=== PATIENT | female | born 1950 | race Caucasian/White ===

== ENCOUNTER 2019-11-13 13:40 | Inpatient (IN) | payer MEDICARE, MEDICAID ==
[~2019-11-13] VITALS: Ht 167.6 cm; Wt 83.0 kg
[2019-11-13] VITALS (34 sets, daily range): BP systolic 63–142; BP diastolic 34–90; BMI 30.2
[2019-11-13 14:07] LABS: HEMATOCRIT 47.7 % (36.0-48.0); HEMOGLOBIN 14.5 g/dL (12-16); MCH 30.2 pg (26.0-34.0); MCHC 30.4 g/dL (31.0-37.0); MCV 99.4 fL (80.0-100.0); MEAN PLATELET VOLUME 10.3 fL (7.4-10.4); PLATELET COUNT 390 10x3/uL (130-400); RDW 14.2 % (11.5-14.5); WBC 17.8 10x3/uL (4.8-10.8)
[2019-11-13 14:11] LABS: CALC OSMOLALITY 281 mosm/kg (275-300); CALCIUM 9.5 mg/dL (8.5-10.1); CARBON DIOXIDE 33.4 mmol/L (21.0-32.0); CHLORIDE - SERUM 95 mmol/L (98-107); CREATININE - SERUM 1.3 mg/dL (0.6-1.3); GLUCOSE 200 mg/dL (74-106); POTASSIUM - SERUM 5.4 mmol/L (3.5-5.1); SODIUM 134 mmol/L (136-145); UREA NITROGEN 34 mg/dL (7-18); eGFR NON AFRICAN AMERICAN 43 mL/min (90-120)
[2019-11-13 14:19] LABS: APTT 32.1 SECONDS (22.8-39.4); INR 1.09 (0.85-1.17); PROTIME 14.1 SECONDS (11.6-15.0)
[2019-11-13 14:20] LABS: D-DIMER-QUANTITATIVE 2.36 ug/mLFEU (0.20-0.54)
[2019-11-13 14:25] LABS: LYMPHOCYTES 12 % (15-50); MONOCYTES 14 % (2-11); NEUTROPHILS 58 % (40-80); PLATELET ESTIMATE NORMAL
[2019-11-13 14:28] LABS: ALBUMIN 2.9 g/dL (3.4-5.0); ALKALINE PHOSPHATASE 116 U/L (46-116); ALT (SGPT) 27 U/L (10-68); BILIRUBIN - TOTAL 0.43 mg/dL (0.2-1.3); CKMB 7.5 U/L (0.0-3.6); CREATINE KINASE 181 UL (21-215); PROTEIN - SERUM 7.9 g/dL (6.4-8.2); TROPONIN-I < 0.017 ng/mL (0.000-0.060)
--- NOTE | 2019-11-13 15:15 | NUR ---
1435 B/P 63/34, DR KENYON AWARE, DIPROVAN HELD UNTIL NOREPINEPHRINE HELPS B/P PER DR KENYON, [facility] B/P 117/72 DIPROVAN AND NOREPINEPHRINE INFUSING VIA PUMP WITHOUT DIFFICULTY, MAP STAYING ABOVE 60. 1530 RT AND MASTIC MAN HERE FOR TRANSPORT TO CT AND THEN ONTO ROOM 2305 , PT ON PORTABLE VENT, PORTABLE MONITOR AND IV PUMP SEE DEPARTURE INFO.
--- NOTE | 2019-11-13 15:30 | NUR ---
STOP TIME FOR [facility] 1530.
--- NOTE | 2019-11-13 16:00 | NUR ---
PT ARRIVED TO UNIT ON STRETCHER. HOOKED UP TO ICU MONITOR. ADMISSION ASSESSMENT COMPLETED. WILL CONTINUE TO MONITOR
[2019-11-13 16:56] LABS: APPEARANCE CLEAR (CLEAR); BILIRUBIN NEGATIVE (NEGATIVE); COLOR YELLOW (YELLOW); GLUCOSE NEGATIVE (NEGATIVE); KETONE NEGATIVE (NEGATIVE); NITRITE NEGATIVE (NEGATIVE); PROTEIN TRACE mg/dL (NEGATIVE); SPECIFIC GRAVITY 1.025 (1.005-1.020); UROBILINOGEN NORMAL (NORMAL)
[2019-11-13 16:57] LABS: BACTERIA FEW /hpf (NEGATIVE); EPITHELIAL CELLS OCC /hpf (0-5); RED CELLS - URINE 0-5 /hpf (0-5); WHITE CELLS - URINE 0-5 /hpf (NEGATIVE)
--- NOTE | 2019-11-13 17:58 | NUR ---
DR DAWN AND DR ALVARADO BOTH CONSULTED ON THIS PT.
--- NOTE | 2019-11-13 19:00 | NUR ---
SHIFT ASSESSMENT COMPLETED. PT CARE ASSUMED. MONITORS ON AND WORKING, SEE FLOW SHEET FOR FURTHER DETIALS. WILL CONTINUE TO OBSERVE. VENT SETTING NOTED.
--- NOTE | 2019-11-13 21:00 | NUR ---
PT TURNED AND REPOSITIONED FOR COMFORT, MONITORS ON AND WORKING VITALS STABLE, FAMILY AT BEDSIDE, UPDATE PROVIDED, DR DAWN AT BEDSIDE, WILL CONTINUE TO OBSERVE.
--- NOTE | 2019-11-13 23:00 | NUR ---
PT TURNED AND REPOSITIONED FOR COMFORT, MONITORS ON AND WORKING, VITALS STABLE, SEE FLOW SHEET FOR FURTHER DETAILS, WILL CONTINUE TO OBSERVE.
[2019-11-14] VITALS (28 sets, daily range): BP systolic 84–139; BP diastolic 46–82; Ht 167.6 cm; Wt 83.0 kg
--- NOTE | 2019-11-14 01:00 | NUR ---
PT TURNED AND REPOSITIONED FOR COMFORT. MONTITORS ON AND WORKING, VITALS STABLE, WILL CONTINUE TO OBSERVE.
--- NOTE | 2019-11-14 03:00 | NUR ---
PT TURNED AND REPOSITIONED FOR COMFORT. MONITORS ON AND WORKING, VITALS STABLE. SEE FLOW SHEET FOR FURTHER DETAILS. WILL CONTINUE TO OBSERVE.
--- NOTE | 2019-11-14 05:00 | NUR ---
PT TURNED AND REPOSITIONED FOR COMFORT. MONITORS ON AND WORKING, VITALS STABLE, WILL CONTINUE TO OBSERVE.
[2019-11-14 05:33] LABS: ANION GAP 12.6 mmol/L (8-16); BILIRUBIN - TOTAL 0.27 mg/dL (0.2-1.3); CALCIUM 8.3 mg/dL (8.5-10.1); CARBON DIOXIDE 28.1 mmol/L (21.0-32.0); CREATININE - SERUM 1.1 mg/dL (0.6-1.3); POTASSIUM - SERUM 4.7 mmol/L (3.5-5.1)
--- NOTE | 2019-11-14 07:00 | NUR ---
PT REPORT RECEIVED FROM APPLICATIONS SUPPORT LEAD NURSE. NO ACUTE SIGNS OF DISTRESS NOTED. SHIFT ASSESSMENT COMPLETED. WILL CONTINUE TO MONITOR
[2019-11-14 07:12] LABS: MCH 30.6 pg (26.0-34.0); MCHC 32.1 g/dL (31.0-37.0); RDW 14.4 % (11.5-14.5)
[2019-11-14 07:13] LABS: HEMATOCRIT 35.5 % (36.0-48.0); HEMOGLOBIN 11.4 g/dL (12-16); MCV 95.4 fL (80.0-100.0); PLATELET COUNT 263 10x3/uL (130-400); RBC 3.72 10x6/uL (4.00-5.40)
--- NOTE | 2019-11-14 09:00 | NUR ---
PT RESTING IN BED COMFORTABLY. NO CHANGES NOTED AT THIS TIME. WILL CONTINUE TO MONITOR. DR ALVARADO AT BEDSIDE UPDATE GIVEN
[2019-11-14 09:32] LABS: ANISOCYTOSIS OCC; LYMPHOCYTES 12 % (15-50); MONOCYTES 9 % (2-11); NEUTROPHILS 74 % (40-80); PLATELET ESTIMATE NORMAL
--- NOTE | 2019-11-14 11:00 | NUR ---
PT RESTING IN BED COMFORTABLY. NO ACUTE SIGNS OF DISTRESS NOTED. REASSESSMENT COMPLETED. WILL CONTINUE TO MONITOR
--- NOTE | 2019-11-14 13:00 | NUR ---
PT LYING IN BED. NO SIGNS OF DISTRESS NOTED. WILL CONTINUE TO MONITOR
--- NOTE | 2019-11-14 15:00 | NUR ---
REASSESSMENT COMPLETED. NO CHANGES NOTED. NO ACUTE SIGNS OF DISTRESS NOTED. WILL CONTINUE TO MONITOR
--- NOTE | 2019-11-14 17:00 | NUR ---
FAMILY AT BEDSIDE. UPDATE GIVEN. NO ACUTE SIGNS OF DISTRESS NOTED. WILL CONTINUE TO MONITOR
--- NOTE | 2019-11-14 19:00 | NUR ---
ASSESSMENT COMPLETED. CHECKED PLACEMENT WITH OGT, NO RESIDUAL. ETT AT 20 CM AT LIP. NOTIFIED MARK RESENDIZ TO CONFIRM. FOLLOWS COMMANDS. REPOSITIONED AND ORAL CARE PROVIDED
--- NOTE | 2019-11-14 19:21 | MORECARE ---
CASE MANAGEMENT DISCHARGE SUMMARY PATIENT: DUKE BENAVIDEZ UNIT: [id number] ADM DATE: 11/13/19 AGE: 69 : 52 SEX: F ROOM/BED: D.2305 AUTHOR: ELVER ROY PHYSICIAN: REFERRING PHYSICIAN: ALMA ROSA YANES MD DATE OF SERVICE: 11/14/19 Discharge Plan Patient Name: DUKE BENAVIDEZ [facility] [facility] 1950 Planned Disposition: Anticipated Discharge Date: Discharge Date: Expected LOS: Initial Reviewer: [email or web address] Initial Review Date: 11/13/2019 Generated: 11/14/19 8:21 pm Comments DCP- Discharge Planning Updated by [email or web address]: Tiffanie Solorio on 11/14/19 6:[address] CM attempted to meet with patient she is currently on vent and there is no family currently available. CM will continue to follow and assist as needed with discharge planning / needs Patient Name: DUKE BENAVIDEZ Page [id number] at 192 All edits/amendments must be made on the electronic document DICTATION DATE: 11/14/191920 MEDIA RELATIONS INTERN: BRYNN 11/14/191920 RPT#: [id number] DC DATE: STATUS: ADM IN [facility] [address] [place] [address] END OF REPORT
--- NOTE | 2019-11-14 21:00 | NUR ---
REPOSITIONED AND ORAL CARE PROVIDED.
--- NOTE | 2019-11-14 23:00 | NUR ---
RE-ASSESSMENT COMPLETED. NO CHANGES SINCE LAST ASSESSMENT. CHG BATH PROVIDED WITH COMPLETE LINEN CHANGE
[2019-11-15] VITALS (25 sets, daily range): BP systolic 108–147; BP diastolic 58–88
--- NOTE | 2019-11-15 01:00 | NUR ---
REPOSITIONED AND ORAL CARE PROVIDED.
--- NOTE | 2019-11-15 03:00 | NUR ---
RE-ASSESSMENT COMPLETED. NO CHANGES SINCE LAST ASSESSMENT. REPOSITIONED AND ORAL CARE PROVIDED
[2019-11-15 04:46] LABS: ALBUMIN 1.8 g/dL (3.4-5.0); ANION GAP 11.7 mmol/L (8-16); BILIRUBIN - TOTAL 0.2 mg/dL (0.2-1.3); CALCIUM 7.9 mg/dL (8.5-10.1); CARBON DIOXIDE 27.9 mmol/L (21.0-32.0); MAGNESIUM - SERUM 2.2 mg/dL (1.8-2.4); PHOSPHOROUS 2.3 mg/dL (2.5-4.9); POTASSIUM - SERUM 4.6 mmol/L (3.5-5.1); PROTEIN - SERUM 5.4 g/dL (6.4-8.2)
--- NOTE | 2019-11-15 05:00 | NUR ---
REPOSITIONED AND ORAL CARE PROVIDED
[2019-11-15 05:08] LABS: BASOPHILS 0.2 % (0-2); EOSINOPHILS 0 % (0-7); HEMATOCRIT 35.2 % (36.0-48.0); HEMOGLOBIN 11.5 g/dL (12-16); IMMATURE GRANULOCYTES 6.1 % (0-5); LYMPHOCYTES 5.6 % (15-50); MCH 30.4 pg (26.0-34.0); MCHC 32.7 g/dL (31.0-37.0); MCV 93.1 fL (80.0-100.0); MEAN PLATELET VOLUME 9.7 fL (7.4-10.4); MONOCYTES 8.8 % (2-11); NEUTROPHILS 79.3 % (40-80); PLATELET COUNT 286 10x3/uL (130-400); RBC 3.78 10x6/uL (4.00-5.40); RDW 14.5 % (11.5-14.5)
--- NOTE | 2019-11-15 06:44 | NUR ---
HEART RATE 38. TURNED PROPOFOL OFF AND HEART SLOWLY CAME UP TO TO 40S AND 50S, PT IS NOW 66. EYES OPEN. FOLLOWING COMMANDS
--- NOTE | 2019-11-15 07:00 | NUR ---
PT REPORT RECEIVED FROM PEST CONTROLLER ASSISTANT NURSE. SHIFT ASSESSMENT COMPLETED. SEDATION TURNED BACK ON. NO ACUTE SIGNS OF DISTRESS NOTED. WILL CONTINUE TO MONITOR
--- NOTE | 2019-11-15 09:00 | NUR ---
PT RESTING IN BED COMFORTABLY. DR ALVARADO ON UNIT. UPDATE GIVEN. WILL CONTINUE TO MONITOR
--- NOTE | 2019-11-15 09:24 | NUR ---
Nutrition follow-up: Pt intubated; sedation off NPO continues OGT placed Labs reviewed Wt: 188# Recommend starting Pulmocare @ 25 ml/hr with increase to goal rate of 60 ml/hr RDN following.
--- NOTE | 2019-11-15 09:45 | NUR ---
PT STARTED ON PSV TRIAL. WILL CONTINUE TO MONITOR
--- NOTE | 2019-11-15 11:00 | NUR ---
PT BACK ON ASSIST CONTROL ON VENT. PT BECAME TACHYCARDIC AND TACHYPNIC. WILL CONTINUE TO MONITOR
--- NOTE | 2019-11-15 13:21 | NUR ---
PT PROVIDED ORAL CARE AND SUCTIONING. THICK MUCUOUS OBSERVED IN THE SUCTION TUBE. WILL CONTINUE TO MONITOR
--- NOTE | 2019-11-15 15:24 | NUR ---
TRIED PT ON PSV TRIAL AGAIN. LASTED 10 MINUTES BEFORE DESATTING TO 89 AND BECOMING TACHYCARDIC. WILL CONTINUE TO MONITOR
--- NOTE | 2019-11-15 17:00 | NUR ---
FAMILY at BEDSIDE. NO ACUTE SIGNS OF DISTRESS NOTED. PT RESTING COMFORTABLY. WILL CONTINUE TO MONITOR
--- NOTE | 2019-11-15 17:22 | MORECARE ---
CASE MANAGEMENT DISCHARGE SUMMARY PATIENT: DUKE BENAVIDEZ UNIT: [id number] ADM DATE: 11/13/19 AGE: 69 : 52 SEX: F ROOM/BED: D.2305 AUTHOR: ELVER ROY PHYSICIAN: REFERRING PHYSICIAN: ALMA ROSA YANES MD DATE OF SERVICE: 11/15/19 Discharge Plan Patient Name: DUKE BENAVIDEZ [facility] [facility] 1950 Planned Disposition: Anticipated Discharge Date: Discharge Date: Expected LOS: Initial Reviewer: [email or web address] Initial Review Date: 11/15/2019 Generated: 11/15/19 6:21 pm DCP- Discharge Planning Updated by [email or web address]: Tiffanie Solorio on 11/14/19 6:[address] CM attempted to meet with patient she is currently on vent and there is no family currently available. CM will continue to follow and assist as needed with discharge planning / needs Last DP export: 11/14/19 6:21 p Patient Name: DUKE BENAVIDEZ Page [phone] at 1722 All edits/amendments must be made on the electronic document DICTATION DATE: 11/15/191720 BEATING MACHINE OPERATOR: BRYNN 11/15/191720 RPT#: [id number] DC DATE: STATUS: ADM IN [facility] [address] [place] [address] END OF REPORT
--- NOTE | 2019-11-15 17:30 | MORECARE ---
CASE MANAGEMENT DISCHARGE SUMMARY PATIENT: DUKE BENAVIDEZ UNIT: [id number] ADM DATE: 11/13/19 AGE: 69 : 52 SEX: F ROOM/BED: D.2305 AUTHOR: ELVER ROY PHYSICIAN: REFERRING PHYSICIAN: ALMA ROSA YANES MD DATE OF SERVICE: 11/15/19 Discharge Plan Patient Name: DUKE BENAVIDEZ Facility: [facility]:[place] : 1950 Planned Disposition: Anticipated Discharge Date: Discharge Date: Expected LOS: Initial Reviewer: [email or web address] Initial Review Date: 11/15/2019 Generated: 11/15/19 6:30 pm DCP- Discharge Planning Updated by LIBBY Solorio on 11/14/19 6:[address] CM attempted to meet with patient she is currently on vent and there is no family currently available. CM will continue to follow and assist as needed with discharge planning / needs DCPIA - Discharge Planning Initial Assessment Updated by AFRICA: Tiffanie Solorio on 11/15/19 5:26 pm * Is the patient Alert and Oriented? Yes * How many steps to enter\exit or inside your home? 3-4 * PCP UNKNOWN * [facility] * Preadmission Environment Home with Family * ADLs Independent * Other Equipment WALKER, BSC, HOME 02, NEBULIZER * List name and contact numbers for known caregivers / representatives who currently or will assist patient after discharge: LULU BENAVIDEZ - [phone] * Verbal permission to speak to the caregivers and representatives has been obtained from the patient. N/A * Community resources currently utilized None * Additional services required to return to the preadmission environment? No * Can the patient safely return to the preadmission environment? Yes * Has this patient been hospitalized within the prior 30 days at any hospital? No Last DP export: 11/15/19 4:22 p Patient Name: DUKE BENAVIDEZ Page 38821 at 1730 All edits/amendments must be made on the electronic document DICTATION DATE: 11/15/191729 SUPERVISOR DITCHING: BRYNN 11/15/191729 RPT#: [id number] DC DATE: STATUS: ADM IN [facility] [address] [place] [address] END OF REPORT
--- NOTE | 2019-11-15 17:39 | MORECARE ---
CASE MANAGEMENT DISCHARGE SUMMARY PATIENT: DUKE ARREDONDO UNIT: [id number] ADM DATE: 11/13/19 AGE: 69 : 52 SEX: F ROOM/BED: D.2305 AUTHOR: KIRILL,DOC PHYSICIAN: REFERRING PHYSICIAN: ALMA ROSA YANES MD DATE OF SERVICE: 11/15/19 Discharge Plan Patient Name: DUKE ARREDONDO Facility: [facility]:[place] : 1950 Planned Disposition: Anticipated Discharge Date: Discharge Date: Expected LOS: Initial Reviewer: [email or web address] Initial Review Date: 11/15/2019 Generated: 11/15/19 6:38 pm Comments DCP- Discharge Planning Updated by [email or web address]: Tiffanie Solorio on 11/15/19 4:[address] Patient Name: DUKE ARREDONDO Admission Status: ER Accout number: [id number] Admission Date: 11-13-2019 : 1950 Admission Diagnosis:SEPSIS, UNSPECIFIED ORGANISM Attending: ALMA ROSA YANES Current LOS: 2 Anticipated DC Date: Planned Disposition: Primary Insurance: IWT PPO Discharge Planning Comments: CM called and spoke with patient's son George Arredondo to complete initial dc planning assessment. Patient is currently sedated and on vent. CM educated him on the CM role and verbal consent given by patient to complete assessment. Patient lives at home with her son and granddaughter where she is independent with her care. At discharge patient plans to return home and feels this is a safe discharge. CM discussed availability of home health, rehab services, and medical equipment. Her family will drive her home upon discharge. Patient has a nebulizer and home o2 (unknown provider ) George denied known discharge needs at this time. CM will continue to follow and will assist as needed with dc plans/needs. Project Financial Analyst: Tiffanie Solorio Appended by Tiffanie Solorio on 11/15/2019 17:33 BAND TEACHER: George patient's son requested a letter from physician stating that she is on home 02 and that it be faxed to [employer] [phone]. for assistance. DCP- Discharge Planning Updated by [email or web address]: Tiffanie Solorio on 11/14/19 6:[address] CM attempted to meet with patient she is currently on vent and there is no family currently available. CM will continue to follow and assist as needed with discharge planning / needs DCPIA - Discharge Planning Initial Assessment Updated by [email or web address]: Tiffanie Solorio on 11/15/19 5:26 pm * Is the patient Alert and Oriented? Yes * How many steps to enter\exit or inside your home? 3-4 * PCP UNKNOWN * [facility] * Preadmission Environment Home with Family * ADLs Independent * Other Equipment WALKER, BSC, HOME 02, NEBULIZER * List name and contact numbers for known caregivers / representatives who currently or will assist patient after discharge: LULU ARREDONDO - [phone] * Verbal permission to speak to the caregivers and representatives has been obtained from the patient. N/A * Community resources currently utilized None * Additional services required to return to the preadmission environment? No * Can the patient safely return to the preadmission environment? Yes * Has this patient been hospitalized within the prior 30 days at any hospital? No Last DP export: 11/15/19 4:30 p Patient Name: DUKE ARREDONDO Page [phone] at 1739 All edits/amendments must be made on the electronic document DICTATION DATE: 11/15/191737 BACKHOE OPERATOR: BRYNN 11/15/191737 RPT#: [id number] DC DATE: STATUS: ADM IN [facility] [address] [place] [address] END OF REPORT
--- NOTE | 2019-11-15 19:00 | NUR ---
REPORT RECEIVED. PT SEDATED, FOLLOWS COMMANDS. SOFT WRIST RESTRAINTS IN PLACE TO BOTH WRISTS. PIV INFUSING IN RT UPPER ARM, LT WRIST, SEE IV FLOWSHEET. ASSESMENT COMPLETED, SEE FLOWSHEET. NO ACUTE DISTRESS AT THIS TIME.
--- NOTE | 2019-11-15 21:00 | NUR ---
PT RESTING IN BED, NO ACUTE DISTRESS NOTED. WILL CONTINUE TO MONITOR.
--- NOTE | 2019-11-15 23:00 | NUR ---
PT RESTING IN BED, NO ACUTE DISTRESS NOTED. WILL CONTINUE TO MONITOR.
[2019-11-16] VITALS (26 sets, daily range): BP systolic 112–167; BP diastolic 56–92
--- NOTE | 2019-11-16 01:00 | NUR ---
PT SEDATED, FOLLOWS COMMANDS. NO ACUTE DISTRESS NOTED AT THIS TIME.
--- NOTE | 2019-11-16 03:00 | NUR ---
PT SEDATED ON VENT, NO ACUTE DISTRESS NOTED.
[2019-11-16 04:40] LABS: BASOPHILS 0.2 % (0-2); EOSINOPHILS 0.1 % (0-7); HEMATOCRIT 36.3 % (36.0-48.0); HEMOGLOBIN 11.9 g/dL (12-16); IMMATURE GRANULOCYTES 9.2 % (0-5); LYMPHOCYTES 5.9 % (15-50); MCH 30.4 pg (26.0-34.0); MCHC 32.8 g/dL (31.0-37.0); MCV 92.6 fL (80.0-100.0); MEAN PLATELET VOLUME 9.6 fL (7.4-10.4); NEUTROPHILS 77.6 % (40-80); PLATELET COUNT 316 10x3/uL (130-400); RBC 3.92 10x6/uL (4.00-5.40); RDW 14.7 % (11.5-14.5); WBC 18.5 10x3/uL (4.8-10.8)
[2019-11-16 04:41] LABS: ALBUMIN 2.1 g/dL (3.4-5.0); ANION GAP 12.1 mmol/L (8-16); BILIRUBIN - TOTAL 0.4 mg/dL (0.2-1.3); CALCIUM 7.8 mg/dL (8.5-10.1); CARBON DIOXIDE 27.5 mmol/L (21.0-32.0); CREATININE - SERUM 0.9 mg/dL (0.6-1.3); POTASSIUM - SERUM 4.6 mmol/L (3.5-5.1); PROTEIN - SERUM 5.8 g/dL (6.4-8.2)
--- NOTE | 2019-11-16 05:00 | NUR ---
PT HEARTRATE DROPS INTO MID 40'S, THEN RETURNS TO HIGH 50'S. WILL CONTINUE TO MONITOR.
--- NOTE | 2019-11-16 07:00 | NUR ---
PT RESTING IN BED, VSS AND WNL, BED ALARM ON. NO SIGNS OF DISTRESS NOTED. WILL CONT TO FOLLOW POC
--- NOTE | 2019-11-16 08:40 | NUR ---
HERE AND GAVE ORDER TO STOP PROPOFOL AND PLACE PT ON CPAP TRIALS.
--- NOTE | 2019-11-16 09:00 | NUR ---
PT HR IN THE 130S AND PT BP ELEVATED, NOTIFIED AND NEW ORDER RECIEVED TO START PROPOFOL AT 15 MCG/KG/MIN AND PLACE PT BACK ON ASSIST CONTROL
--- NOTE | 2019-11-16 11:00 | NUR ---
PT RESTING IN BED, VSS AND WNL. NO SIGNS OF DISTRESS NOTED. WILL CONT TO FOLLOW POC
--- NOTE | 2019-11-16 13:00 | NUR ---
PT RESTING IN BED, VSS AND WNL, BED ALARM ON. NO SIGNS OF DISTRESS NOTED. WILL CONT TO FOLLOW POC
--- NOTE | 2019-11-16 15:00 | NUR ---
PT RESTING IN BED, VSS AND WNL. BED ALARM ON. NO SIGNS OF DISTRESS NOTED AT THIS TIME, WILL CONT TO FOLLOW POC
--- NOTE | 2019-11-16 15:51 | NUR ---
GAVE ORDER TO START PULMOCARE AT 25ML/HR.
--- NOTE | 2019-11-16 17:00 | NUR ---
PT RESTING IN BED, VSS AND WNL. ETT SECURED. NO SIGNS OF DISTRESS NOTED. BED ALARM ON. WILL CONT TO FOLLOW POC
--- NOTE | 2019-11-16 21:30 | NUR ---
Report received from previous nurse. Pt is laying in bed intubated at this time. No sedation is on. Pt shakes her head no to sedation. No needs noted or indicated by pt. No s/s of distress. Will continue to monitor.
--- NOTE | 2019-11-16 23:00 | NUR ---
Reassessment completed, see flowsheet for details. Pt is laying in bed at this time intubated. No needs noted. No s/s of distress. Will continue to monitor.
[2019-11-17] VITALS (24 sets, daily range): BP systolic 132–171; BP diastolic 66–93
--- NOTE | 2019-11-17 01:00 | NUR ---
Pt is laying in bed with eyes closed no needs noted. No s/s of distress. Will continue to monitor.
--- NOTE | 2019-11-17 03:00 | NUR ---
Reassessment completed, see flowsheet for details. Pt is laying in bed with eyes closed. No s/s of distress. Will continue to monitor.
[2019-11-17 04:52] LABS: HEMOGLOBIN 12.1 g/dL (12-16); MCHC 33.6 g/dL (31.0-37.0); MCV 92.3 fL (80.0-100.0); MEAN PLATELET VOLUME 9.4 fL (7.4-10.4); PLATELET COUNT 282 10x3/uL (130-400); RDW 14.6 % (11.5-14.5); WBC 17.2 10x3/uL (4.8-10.8)
--- NOTE | 2019-11-17 05:00 | NUR ---
Pt is laying in bed with eyes closed. No needs noted. Will continue to monitor.
[2019-11-17 05:06] LABS: ALBUMIN 2.2 g/dL (3.4-5.0); ANION GAP 10.3 mmol/L (8-16); BILIRUBIN - TOTAL 0.21 mg/dL (0.2-1.3); CALCIUM 8.2 mg/dL (8.5-10.1); CARBON DIOXIDE 30.1 mmol/L (21.0-32.0); POTASSIUM - SERUM 4.4 mmol/L (3.5-5.1); PROTEIN - SERUM 5.8 g/dL (6.4-8.2)
--- NOTE | 2019-11-17 07:00 | NUR ---
PT RESTING IN BED, SHAKES HEAD IN RESPONSE TO YES AND NO QUESTIONS. VSS AND WNL. BED ALARM ON. NO SIGNS OF DISTRESS NOTED. ETT SECURED. WILL CONT TO FOLLOW POC
--- NOTE | 2019-11-17 09:00 | NUR ---
PT RESTING IN BED, VSS AND WNL. BED ALARM ON. GAVE ORDERS TO OBTAIN CONSENT FOR BRONCHOSCOPY. TELEPHONE CONSENT OBTAIN WITH SECOND NURSE WITNESS FROM SON, PT MADE AWARE OF PROCEDURE AND SHAKES HEAD YES TO PROCEDURE. ETT SECURED. NO SIGNS OF DISTRESS NOTED AT THIS TIME, WILL CONT TO FOLLOW POC
[2019-11-17 10:03] LABS: HYPOCHROMASIA OCC; LYMPHOCYTES 10 % (15-50); MONOCYTES 22 % (2-11); NEUTROPHILS 61 % (40-80); PLATELET ESTIMATE NORMAL; ROULEAUX OCC
--- NOTE | 2019-11-17 11:00 | NUR ---
PT RESTING IN BED, VSS AND WNL. BED ALARM ON. ETT SECURED. REESE CATHETER DRAINING BLOOD TINGED URINE FREELY VIA GRAVITY. NO SIGNS OF DISTRESS NOTED AT THIS TIME, WILL CONT TO FOLLOW POC
--- NOTE | 2019-11-17 12:38 | NUR ---
Nutrition follow-up: Pt s/p bronch today Pulmocare started @ 25 ml/hr via NGT Labs reviewed Recommend advancing Pulmocare to goal rate of 60 ml/hr RDN following.
--- NOTE | 2019-11-17 14:30 | NUR ---
PIV TO LEFT WRIST INFILTRATED, PIV REMOVED WITH CATHETER TIP INTACT.
--- NOTE | 2019-11-17 15:50 | NUR ---
PT EXTUBATED ORDERED. PT PLACED ON 3L NC AND TITRATED TO 8L NC. PT O2 SAT IN THE UPPER 90S. NO SIGNS OF DISTRESS NOTED. WILL CONT TO FOLLOW POC
--- NOTE | 2019-11-17 17:14 | NUR ---
22G PIV INSERTED X1 ATTEMPT TO PT RIGHT HAND,PT TOLERATED WELL. VSS AND WNL. FAMILY AT BEDSIDE, DECLINES ANY FURTHER NEEDS AT THIS TIME, WILL CONT TO FOLLOW POC
--- NOTE | 2019-11-17 19:00 | NUR ---
ASSESSMENT COMPLETED. SITTING UP IN BED, O2 AT 6L HIGH FLOW NC. DENIES ANY NEEDS.
--- NOTE | 2019-11-17 21:00 | NUR ---
DENIES ANY NEEDS. CALL LIGHT IN REACH. REPOSITIONED PROVIDED.
--- NOTE | 2019-11-17 23:00 | NUR ---
RE-ASSESSMENT COMPLETED. NO CHANGES SINCE LAST ASSESSMENT
[2019-11-18] VITALS (24 sets, daily range): BP systolic 117–185; BP diastolic 66–107
--- NOTE | 2019-11-18 01:00 | NUR ---
WATCHING TV, DENIES ANY NEEDS. CALL LIGHT IN REACH. REPOSITIONED
--- NOTE | 2019-11-18 03:00 | NUR ---
RE-ASSESSMENT COMPLETED. NO CHANGES SINCE LAST ASSESSMENT
[2019-11-18 04:53] LABS: BASOPHILS 0.4 % (0-2); EOSINOPHILS 0 % (0-7); HEMOGLOBIN 13.1 g/dL (12-16); IMMATURE GRANULOCYTES 15.6 % (0-5); LYMPHOCYTES 3.6 % (15-50); MCH 30.2 pg (26.0-34.0); MCV 94.5 fL (80.0-100.0); MEAN PLATELET VOLUME 9.4 fL (7.4-10.4); MONOCYTES 6.5 % (2-11); NEUTROPHILS 73.9 % (40-80); PLATELET COUNT 289 10x3/uL (130-400); RBC 4.34 10x6/uL (4.00-5.40); WBC 24.4 10x3/uL (4.8-10.8)
[2019-11-18 05:00] LABS: ALBUMIN 2.4 g/dL (3.4-5.0); ALKALINE PHOSPHATASE 61 U/L (46-116); ALT (SGPT) 19 U/L (10-68); BILIRUBIN - TOTAL 0.25 mg/dL (0.2-1.3); CALC OSMOLALITY 296 mosm/kg (275-300); CALCIUM 8.4 mg/dL (8.5-10.1); CARBON DIOXIDE 33.1 mmol/L (21.0-32.0); CHLORIDE - SERUM 105 mmol/L (98-107); CREATININE - SERUM 0.8 mg/dL (0.6-1.3); GLUCOSE 133 mg/dL (74-106); MAGNESIUM - SERUM 2.8 mg/dL (1.8-2.4); PHOSPHOROUS 4.6 mg/dL (2.5-4.9); PROTEIN - SERUM 6.2 g/dL (6.4-8.2); SODIUM 143 mmol/L (136-145); UREA NITROGEN 41 mg/dL (7-18); eGFR NON AFRICAN AMERICAN 76 mL/min (90-120)
--- NOTE | 2019-11-18 05:00 | NUR ---
REPOSITIONED. DENIES ANY NEEDS
--- NOTE | 2019-11-18 07:15 | NUR ---
REPORT RECEIVED. PT ON CONTACT PRECAUTIONS. WAS ADMITTED HAVING HEAD LICE. PT WAS EXTUBATED YESTERDAY 11/17/19. LUNGS ARE DIMINISHED. PT IS ALERT AND CONFUSED TO TIME. PT IS ON 6L HIGH FLOW NC. SHE HAS A REESE CATHETER. SHE HAS AN IV TO HER RIGHT HAND THAT IS SALINE LOCKED. SHE HAS SOME REDNESS TO GEMINI GROINS AND GEMINI UNDER BREASTS. PT IS CURRENTLY NPO AWAITING A SPEECH EVAL. VSS. NO COMPLAINTS OR NEEDS. WILL CONTINUE TO MONITOR.
--- NOTE | 2019-11-18 09:11 | NUR ---
DR ALVARADO ROUNDED ON PT. WANTS A SPEECH EVAL ORDERED.
--- NOTE | 2019-11-18 11:30 | NUR ---
PT COMPLAINS OF HUNGER. EXPLAIN THAT WE HAVE A SPEECH EVAL CONSULT IN AND HAVE TO WAIT ON THEM. VSS. WILL CONTINUE TO MONITOR. CALL LIGHT IN REACH.
--- NOTE | 2019-11-18 13:50 | NUR ---
WAITING ON VANC RESULTS TO SEE IF PT IS THERAPEUTIC. VSS. WILL CONTINUE TO MONITOR.
--- NOTE | 2019-11-18 15:00 | NUR ---
VANC HELP PER PHARMACY AND VANC TROUGH. VSS. WILL CONTINUE TO MONITOR.
[2019-11-18 16:08] LABS: ACID FAST SMEAR Negative (()); AFB SPECIMEN PROCESSING Concentration (())
--- NOTE | 2019-11-18 17:45 | NUR ---
ANTIBIOTICS INFUSING INTO RIGHT HAND IV. VSS. PT REPOSITIONED IN BED. NO COMPLAINTS OR NEEDS. CALL LIGHT IN REACH.
--- NOTE | 2019-11-18 19:00 | NUR ---
ASSESSMENT COMPLETED. REPOSITIONED ORAL CARE PROVIDED. DENIES ANY NEEDS. O2 AT 6L VIA HIGH FLOW NC. RIGHT HAND PIV SALINE LOCKED.
--- NOTE | 2019-11-18 21:00 | NUR ---
DENIES ANY NEEDS. 2 SMALL LOOSE BM NOTED IN LAST HOUR
--- NOTE | 2019-11-18 23:00 | NUR ---
RE-ASSESSMENT COMPLETED. NO CHANGES SINCE LAST ASSESSMENT.
[2019-11-19] VITALS (13 sets, daily range): BP systolic 138–174; BP diastolic 67–100
--- NOTE | 2019-11-19 01:00 | NUR ---
DENIES ANY NEEDS. AWAKE, WATCHING TV.
--- NOTE | 2019-11-19 03:00 | NUR ---
RE-ASSESSMENT COMPLETED. NO CHANGES SINCE LAST ASSESSMENT
--- NOTE | 2019-11-19 05:00 | NUR ---
DENIES ANY NEEDS. MINIMAL ASSIST WITH RE-POSITIONING
[2019-11-19 05:07] LABS: HEMATOCRIT 42.3 % (36.0-48.0); HEMOGLOBIN 13.4 g/dL (12-16); MCH 30.5 pg (26.0-34.0); MCHC 31.7 g/dL (31.0-37.0); MCV 96.4 fL (80.0-100.0); MEAN PLATELET VOLUME 9.1 fL (7.4-10.4); PLATELET COUNT 268 10x3/uL (130-400); RBC 4.39 10x6/uL (4.00-5.40); RDW 14.9 % (11.5-14.5); WBC 25.8 10x3/uL (4.8-10.8)
[2019-11-19 05:21] LABS: ALBUMIN 2.5 g/dL (3.4-5.0); ALKALINE PHOSPHATASE 59 U/L (46-116); ALT (SGPT) 20 U/L (10-68); BILIRUBIN - TOTAL 0.27 mg/dL (0.2-1.3); CALC OSMOLALITY 302 mosm/kg (275-300); CALCIUM 8.2 mg/dL (8.5-10.1); CARBON DIOXIDE 37.4 mmol/L (21.0-32.0); CHLORIDE - SERUM 105 mmol/L (98-107); CREATININE - SERUM 0.8 mg/dL (0.6-1.3); GLUCOSE 128 mg/dL (74-106); MAGNESIUM - SERUM 2.5 mg/dL (1.8-2.4); PHOSPHOROUS 3.8 mg/dL (2.5-4.9); POTASSIUM - SERUM 3.2 mmol/L (3.5-5.1); SODIUM 146 mmol/L (136-145); UREA NITROGEN 41 mg/dL (7-18); eGFR NON AFRICAN AMERICAN 76 mL/min (90-120)
[2019-11-19 05:37] LABS: LYMPHOCYTES 2 % (15-50); MONOCYTES 7 % (2-11); NEUTROPHILS 76 % (40-80); PLATELET ESTIMATE NORMAL
--- NOTE | 2019-11-19 07:15 | NUR ---
REPORT RECEIVED. ON CONTACT ISOLATION FOR LICE. PT IS HAVING POTASSIUM REPLACED AT THIS TIME TO RIGHT HAND IV. PT HAS REESE. ON O2 AT 6L. VSS. WILL CONTINUE TO MONITOR.
--- NOTE | 2019-11-19 09:10 | NUR ---
MEDS GIVEN. IV TO RT HAND INFILTRATED. RESITED TO LEFT UPPER ARM. BEDSIDE SWALLOW DONE BY ME, PER DR ALVARADO. PT SWALLOWED THIN LIQUIDS WITH NO PROBLEMS. REMINDED TO TUCK CHIN AND SWALLOW. TOLERATED WELL. WILL CONTINUE TO MONITOR.
--- NOTE | 2019-11-19 10:16 | NUR ---
PT UP TO CHAIR WITH PHYSICAL THERAPY. TOLERATED WELL. VSS.
--- NOTE | 2019-11-19 10:47 | NUR ---
DR YANES OKAYED PT TO GO TO FLOOR.
--- NOTE | 2019-11-19 16:08 | NUR ---
PT SITTING UP IN CHAIR. DENIES NEEDS AT PRESENT.
--- NOTE | 2019-11-19 20:00 | NUR ---
RECEIVED PT FROM ICU VIA WHEELCHAIR. TRANSFERED PT TO CHAIR. A/O WITH NO SIGNS OF ACUTE DISTRESS. IV TO THE LT AC WITH NO REDNESS OR SWELLING NOTED. NC @4.5L AND REESE IN PLACE WITH DARK RED OUTPUT. CONTACT ISOLATION IN PLACE. DENIES NO OTHER NEEDS AT THIS TIME. CONTINUE PLAN OF CARE.
[2019-11-20 00:33] VITALS: BP 134/65
[2019-11-20 05:01] VITALS: BP 140/65
[2019-11-20 07:43] VITALS: BP 125/71
--- NOTE | 2019-11-20 08:00 | NUR ---
AWAKE AND ALERT. ORIENTED X3. SITTING UP ON SIDE OF BED EATING BREAKFAST. LUNGS HAVE FAINT CRACKLES IN LOWER LOBES, PRODUCTIVE COUGH NOTED. SKIN IS INTACT WITHOUT REDNESS. SL TO LEFT AC IS PATENT WITHOUT REDNESS AT INSERTION SITE. NO ACTIVE LICE SEEN. PATIENT REPORTS SHE WAS TREATED ON ADMISSION. WILL MONITOR.
--- NOTE | 2019-11-20 10:08 | NUR ---
PT IN ROOM WORKING WITH PATIENT. DENIES NEEDS.
[2019-11-20 10:38] LABS: CALC OSMOLALITY 291 mosm/kg (275-300); CALCIUM 8.3 mg/dL (8.5-10.1); CARBON DIOXIDE 35.2 mmol/L (21.0-32.0); CHLORIDE - SERUM 102 mmol/L (98-107); CREATININE - SERUM 0.7 mg/dL (0.6-1.3); GLUCOSE 158 mg/dL (74-106); POTASSIUM - SERUM 4.4 mmol/L (3.5-5.1); SODIUM 141 mmol/L (136-145); UREA NITROGEN 35 mg/dL (7-18); eGFR NON AFRICAN AMERICAN 88 mL/min (90-120)
[2019-11-20 10:51] LABS: BASOPHILS 0.1 % (0-2); EOSINOPHILS 0 % (0-7); HEMATOCRIT 45.1 % (36.0-48.0); HEMOGLOBIN 13.8 g/dL (12-16); IMMATURE GRANULOCYTES 6.3 % (0-5); LYMPHOCYTES 3.8 % (15-50); MCH 30.6 pg (26.0-34.0); MCHC 30.6 g/dL (31.0-37.0); MEAN PLATELET VOLUME 10.2 fL (7.4-10.4); MONOCYTES 3.2 % (2-11); NEUTROPHILS 86.6 % (40-80); PLATELET COUNT 283 10x3/uL (130-400); RBC 4.51 10x6/uL (4.00-5.40); RDW 15.1 % (11.5-14.5); WBC 29.8 10x3/uL (4.8-10.8)
[2019-11-20] MEDS ORDERED: PROVENTIL/2.5 MG/3 M INH (10:58)
[2019-11-20] MEDS ORDERED: LISINOPRIL20 MG PO (10:59)
[2019-11-20] MEDS ORDERED: SPIRIVA RESPIMAT4 GM INH (11:04)
[2019-11-20] MEDS ORDERED: IPRAT-ALBUT 0.5-3 ML UPD (11:04)
[2019-11-20] MEDS ORDERED: METOPROLOL TART50 MG PO (11:04)
[2019-11-20] MEDS ORDERED: ADVAIR 250-501 EAC1 INH (11:06)
[2019-11-20 11:09] LABS: FUNGUS STAIN Final report (())
--- NOTE | 2019-11-20 11:45 | NUR ---
REESE D/C WITH TIP INTACT WITHOUT DIFFICULTY. TOLERATED WITHOUT C/O DISCOMFORT. WILL MONITOR.
[2019-11-20 12:26] VITALS: BP 165/63
--- NOTE | 2019-11-20 13:46 | NUR ---
UP TO BR WITH ONE PERSON ASSIST.SAT DOWN ON FLOOR AT END OF BED. STATED "I NEED TO SIT DOWN" AND DID. UP WITH MAX ASSIST OF 3. AMBULATED TO BR AND SAT ON TIOLET. VOIDED SMALL AMOUNT OF URINE AND HAD SMALL BM SKIN CARE PER SELF. REPOSITIONED IN BED FOR COMFORT.
--- NOTE | 2019-11-20 14:11 | NUR ---
Nutrition Follow-up: Chart reviewed. Noted pt was extubated 11/17/19. No [employer] eval noted. Pt now on regular diet. Attempted to speak with patient but she was asleep and did not awaken to me knocking on door. Diet: Regular PO intake: 80% - 50% x 2 meals recorded Last BM: 11/20/19. WT: 182# (11/19/19); Admit wt: 187# (11/13/19) Meds noted: vancomycin, rocephin, levaquin Labs noted: Na 146, Glu 128, Mg 2.5 Recommend [employer] eval s/p extubation. PO diet per [employer]. No nutrient restrictions, other than maybe sodium, medically indicated. Will continue to monitor. RD following.
--- NOTE | 2019-11-20 15:00 | NUR ---
PATIENT FOUND WITH O2 OFF. RESPONDS TO VERBAL STIMULATION. O2 SAT AT 53% ON RA. O2 PLACED AT 5L NC AND SATS BEGAN TO RISE. PATIENT IS RESPONSIVE FOLLOW COMMANDS AND COLOR WNL. SATS UP TO 95% ON 8L. O2 DECREASED TO 5LNC. SAT REMAINS AT 95%. WILL MONITOR.
--- NOTE | 2019-11-20 17:00 | NUR ---
PATIENT AWAKE FROM NAP. SEEMS SLIGHTLY CONFUSED. SON AT BEDSIDE. LATONIA MACHUCA NOTIFIED OF SAME. NEW ORDERS RECEIVED.
[2019-11-20 17:28] VITALS: BP 105/48
--- NOTE | 2019-11-20 17:30 | NUR ---
MORE RESPONSIVE SHE BECOMES MORE AWAKE. LATONIA CHEWN HERE TO SEE PATIENT. NEW ORDERS RECEIVED. RT NOTIFIED OF NEED FOR ABG'S. WILL CONTINUE TO MONITOR.
--- NOTE | 2019-11-20 18:00 | NUR ---
DR. SABILLON AND LATONIA MACHUCA APN NOTIFIED OF ABG'S. NEW ORDERS RECEIVED FOR BIPAP. RT NOTIFIED OF SAME.
--- NOTE | 2019-11-20 18:46 | NUR ---
RESTING QUIETLY IN BED WITH BIPAP IN PLACE. SON AT BEDSIDE. RESTING QUIETLY AT THIS TIME. NO NEEDS NOTED.
--- NOTE | 2019-11-20 19:44 | NUR ---
PATIENT RESTING IN BED WITH GUEST AT BEDSIDE. NO S/S OF DISTRESS. PATIENT DENIES NEEDS AT THIS TIME. ADMINISTERED MEDS PER ORDERS. PATIENT HAS BIPAP ON AT THIS TIME. BED IN LOWEST POSITION AND CALL LIGHT WITHIN REACH. ENCOURAGED THE PATIENT TO CALL IF SHE HAS NEEDS. WILL CONTINUE TO MONITOR.
[2019-11-20 19:55] VITALS: BP 111/52
[2019-11-21 00:19] VITALS: BP 98/44
[2019-11-21 04:22] VITALS: BP 98/44
[2019-11-21 06:31] LABS: BASOPHILS 0.1 % (0-2); EOSINOPHILS 0.1 % (0-7); HEMATOCRIT 39.6 % (36.0-48.0); HEMOGLOBIN 11.8 g/dL (12-16); IMMATURE GRANULOCYTES 3.3 % (0-5); LYMPHOCYTES 5.9 % (15-50); MCH 29.9 pg (26.0-34.0); MCHC 29.8 g/dL (31.0-37.0); MCV 100.5 fL (80.0-100.0); MEAN PLATELET VOLUME 10.1 fL (7.4-10.4); MONOCYTES 4.8 % (2-11); NEUTROPHILS 85.8 % (40-80); RBC 3.94 10x6/uL (4.00-5.40); RDW 15.2 % (11.5-14.5)
[2019-11-21 06:34] LABS: PLATELET COUNT 196 10x3/uL (130-400); WBC 15.5 10x3/uL (4.8-10.8)
[2019-11-21 06:59] LABS: ALBUMIN 2.2 g/dL (3.4-5.0); BILIRUBIN - TOTAL 0.19 mg/dL (0.2-1.3); C-REACTIVE PROTEIN 0.2 mg/dL (0.0-0.9); CALCIUM 7.8 mg/dL (8.5-10.1); CARBON DIOXIDE 37.5 mmol/L (21.0-32.0); CREATININE - SERUM 0.9 mg/dL (0.6-1.3); MAGNESIUM - SERUM 2.3 mg/dL (1.8-2.4); POTASSIUM - SERUM 4.5 mmol/L (3.5-5.1); PROTEIN - SERUM 5.1 g/dL (6.4-8.2)
[2019-11-21 08:22] VITALS: BP 116/54
--- NOTE | 2019-11-21 08:30 | NUR ---
AWAKE AND ALERT. ORIENTED X3. NO C/O AT THIS TIME. SON AT BEDSIDE. LUNGS HAVE WHEEZES THROUGHOUT LUNG CHANG, OCCASSIONALLY PRODUCTIVE COUGH NOTED. SKIN IS INTACT WITHOUT REDNESS. NO EDEMA NOTED. IV TO LEFT AC IS PATENT WTIHOUT REDNESS AT INSERTION SITE. DENIES NEEDS. BIPAP IN PLACE. O2 SAT AT 100%. HEART RATE IN LOW 50'S. WILL MONITOR.
--- NOTE | 2019-11-21 10:00 | NUR ---
REFUSED BREAKFAST FOR NOW. SON AT BEDSIDE. ABLE TO TAKE AM MEDS WITHOUT DIFFICULTY.
--- NOTE | 2019-11-21 11:00 | NUR ---
VOIDED 300cc DARK YELLOW URINE. SKIN CARE PER STAFF.
[2019-11-21 12:12] VITALS: BP 122/42
--- NOTE | 2019-11-21 13:35 | NUR ---
BIPAP REMOVED FOR LUNCH. MAINTAIN 98% DURING MEAL. AFTER EATING SATS BEGAN TO DROP. BIPAP REPLACED WHEN DOWN TO 88%. WILL MONITOR.
--- NOTE | 2019-11-21 16:13 | NUR ---
RESTING QUIETLY IN BED. DENIES NEEDS.
[2019-11-21 17:34] VITALS: BP 116/55
--- NOTE | 2019-11-21 17:52 | NUR ---
BIPAP REMOVED FOR SUPPER. MAINTAINED O2 SAT WHILE EATING BUT DROPED INTO THE HIGH 80'S AFTER. BIPAP REPLACED AND SATS AT 95%.
--- NOTE | 2019-11-21 18:38 | NUR ---
ATE ABOUT HALF OF SUPPER. UNABLE TO MAINTAIN SAT OFF BIPAP. RESTARTED AND SATS AT 98-99%. REQUESTED AND GIVNE YONKERS TO CLEAR SECRETIONS. LARGE AMOUNT OF THICK TRINIDAD SPUTUM COMMING UP AT THIS TIME. FAMILY AT BEDSIDE. NO CHANGES NOTED. DENIES NEEDS.
--- NOTE | 2019-11-21 19:30 | NUR ---
PT ALERT AND ORIENTED X3. NO COMPLAINTS. IV TO LEFT AC INFUSING WITH NO REDNESS OR SWELLING AT INSERTION SITE. BIPAP ON. OX SAT 100%. HEART RATE 64. WHEEZING. PRODUCTIVE COUGH. DENIES HAVING ANY PAIN OR NEEDS AT THIS TIME. GRANDDAUGHTER AT BEDSIDE. BED IN LOWEST POSITION. SIDE RAILS UP. CALL LIGHT IN REACH. WILL CONTINUE TO MONITOR.
[2019-11-21 20:59] VITALS: BP 130/70
--- NOTE | 2019-11-21 22:30 | NUR ---
IV TO LEFT AC INFILTRATED. D/C'D WITH CATHETER INTACT. IV RESITED TO RIGHT HAND WITH 22G.
--- NOTE | 2019-11-21 22:30 | NUR ---
IV TO LEFT AC INFILTRATED. D/C'D WITH CATHETER INTACT. IV RESITED TO LEFT HAND WITH 22 G.
[2019-11-22] VITALS (7 sets, daily range): BP systolic 88–130; BP diastolic 42–70
--- NOTE | 2019-11-22 04:00 | NUR ---
PATIENT RESTING IN BED WITH EYES CLOSED. NO SIGNS OF DISTRESS. GRANDDAUGHTER AT BEDSIDE. BED IN LOWEST POSITION. SIDE RAILS UP. CALL LIGHT IN REACH. WILL CONTINUE TO MONITOR.
--- NOTE | 2019-11-22 07:10 | NUR ---
REPORT RECEIVED FROM LANDSCAPE LABORER AND PATIENT CARE ASSUMED. PATIENT LAYING IN BED ON BACK AWAKE, ALERT AND ORIENTED X 4. PATIENT IS STABLE AND VSS. PATIENT DENIES ANY NEEDS OR PAIN. WILL CONTINUE WITH PLAN OF CARE. GRANDTR AT BS. SR UP X 2 BED IN LOW POSITION AND CALL LIGHT IN REACH.
[2019-11-22 09:32] LABS: BASOPHILS 0 % (0-2); EOSINOPHILS 1.2 % (0-7); HEMATOCRIT 41.8 % (36.0-48.0); HEMOGLOBIN 12.5 g/dL (12-16); IMMATURE GRANULOCYTES 1.9 % (0-5); LYMPHOCYTES 9.9 % (15-50); MCHC 29.9 g/dL (31.0-37.0); MCV 100.5 fL (80.0-100.0); MEAN PLATELET VOLUME 9.8 fL (7.4-10.4); MONOCYTES 9.1 % (2-11); NEUTROPHILS 77.9 % (40-80); PLATELET COUNT 165 10x3/uL (130-400); RBC 4.16 10x6/uL (4.00-5.40); RDW 14.9 % (11.5-14.5); WBC 13.8 10x3/uL (4.8-10.8)
[2019-11-22 09:33] LABS: CHLORIDE - SERUM 104 mmol/L (98-107); CREATININE - SERUM 0.7 mg/dL (0.6-1.3); GLUCOSE 76 mg/dL (74-106); MAGNESIUM - SERUM 2.3 mg/dL (1.8-2.4); SODIUM 144 mmol/L (136-145); eGFR NON AFRICAN AMERICAN 88 mL/min (90-120)
[2019-11-22 09:39] LABS: CALC OSMOLALITY 291 mosm/kg (275-300); POTASSIUM - SERUM 3.6 mmol/L (3.5-5.1); UREA NITROGEN 29 mg/dL (7-18)
[2019-11-22 09:45] LABS: CARBON DIOXIDE 42.1 mmol/L (21.0-32.0)
--- NOTE | 2019-11-22 10:52 | NUR ---
SPOKE WITH IC NURSE RAMA. REPORTED THAT PATIENT HAS A HUGE AMOUNT OF LICE NITS IN HAIR . INFORMED THAT PATIENT UNABLE TO SHOWER DUE TO BIPAP AND DESAT. RAMA STATED SHE WILL SPEAK WITH IC DIRECTOR NABIL AND CALL BACK . PATIENT SITTING UP IN BED WITH O2NCHF AT 5L. O2 SAT IS 94%. PATIENT DENIES ANY NEEDS OR PAIN. GRANDCURTIS AT BS. WILL CONTINUE TO MONITOR. SR UP X 2 BED IN LOW POSITION AND CALL LIGHT IN REACH.
--- NOTE | 2019-11-22 12:00 | NUR ---
KAMERON MCFARLAND ON UNIT. INFORMED THAT PATIENT HAS NOT BEEN SEEN BY INFECTION CONTROL BUT THIS NURSE SPOKE WITH NABIL MCFARLAND EARLIER. AWAITING ORDERS. KAMERON STATES SHE WILL DISCUSS IN MEETING THIS AFTERNOON AND GET BACK TO ME.
--- NOTE | 2019-11-22 14:00 | NUR ---
NABIL RN AND BENITO RN FROM IC ON UNIT. PATIENT NOT SEEN BY INFECTION CONTROL. THIS NURSE INFORMED THAT PATIENT WILL NEED NITS COMBED OUT WITH NIT COMB. INFORMED IC NURSES THAT PATIENTS HAIR IS LONG, THICK AND MATTED TO HER SCALP AND THAT BRUSH WILL NOT GO THROUGH HAIR. I WAS INSTRUCTED TO CONTACT BRUNA MELO TO SEE ABOUT STAFFING TO BRUSH OUT AND AND USE NIT COMB. INFORMED KAMERON MCFARLAND BY PHONE AND STATES SHE WILL GET BACK TO ME AFTER SHE SPEAKS WITH HARSHAD MCFARLAND OR BRUNA POND. PATIENT REAMINS STABLE AND UNCHANGED. PATIENT DENIES ANY NEEDS OR PAIN. WILL CONTINUE TO MONITOR. SR UP X 2 BED IN LOW POSITION AND CALL LIGHT IN REACH.
--- NOTE | 2019-11-22 14:15 | NUR ---
Rehab Prescreening Consult recieved and the chart has been reviewed. She is [facility] managed Medicare and will require a preauth. She has an OT eval ordered but pending. It is also in the nursing notes that she is in isolation for head lice nits. This will need to be resolved prior to coming to the rehab unit as our rooms are double and she would be doing therapy in the gym with other patients. Estefani May RN Clinical Liaison, Rehab
--- NOTE | 2019-11-22 16:30 | NUR ---
KAMERON MCFARLAND ON UNIT. HAS TRINIDAD BUCKET WITH MAYONNAISE PACKETS. THIS NURSE INSTRUCTED TO CALL FOR ORDER TO PUT MAYONNAISE IN HAIR. THIS NURSE INSTRUCTED TO COMB OUT NITS AFTER CARVALHO PLACED. EXPLAINED THAT IT WOULD ACTUALLY TAKE HOURS TO REMOVE THE NITS . ALSO INFORMED THAT THIS UNIT IS CLOSING DOWN AND APTIENT NEEDS TREATMENT PRIOR TO TRANSPORT. CALLED CINTHYA VIZCAINO FOR ORDER. RECEIVED NEW ORDER. ENTERED PATIENTS ROOM TO DISCUSS TREATMENT AND SON IS IN ROOM. SON STATES TO HIS MOTHER AND TO THIS NURSE THAT DUE TO HIS EXPERIENCE WITH HIS CHILDREN AND BAD PTS INFESTATION, THAT STATES TO MOTHER THAT SHE NEEDS TO SHAVE HER HAIR. PT STATES THAT SHE HAS NOT BEEN ABLE TO WASH HER HAIR IN MORE THAN 3 MONTHS. SHE STATES THAT HER HAIR IS LONG AND DIFFICULT TO WASH. SHE THEN TELLS SON THAT SHE DOES WANT HER HEAD SHAVED. EXPLAINED TO PATIENT AND SON THAT STAFF WILL NOT BE ABLE TO CUT HER HAIR. PT AND SON ASK IF WE HAVE HAIR CLIPPERS ON HAND. I STATED THAT WE DO BUT I WOULD HAVE TO CALL KERMIT MCFARLAND [facility] TO BE CERTAIN IT IS PERMISSABLE. SPOKE WITH KERMIT MCFARLAND AND SHE STATED THAT WE CAN LOAN CLIPPERS TO SON TO SHAVE PTS HEAD. CLIPPERS AND BAG GIVEN TO SON. WITH MONE SHAFFER PRESENT REPEATED THAT WE ARE NOT ASKING OR TELLING SON TO SHAVE PTS HEAD. SON AND PT AGREED AND BOTH STATED THAT SHE WANTS HER HEAD SHAVED TO GET RID OF THE MESS ON HER HEAD. SON SHAVED PATIENTS HAIR AND TOLERATED WELL.
--- NOTE | 2019-11-22 17:15 | NUR ---
CALLED BRUNA LINCOLN EXPLAINED SITUATION . HE STATED NOT TO USE MAYONNAISE. NEW ORDER RECEIVED FOR RID SHAMPOO TONIGHT AND REPEAT TOMORROW NIGHT. APPLIED SHAMPOO LEFT FOR 10 RINSED AND COMBED WITH NIT COMB. PATIENT TOLERATED WELL. PATIENT BEING TRANSFERED TO ROOM 2216. CALLED REPORT TO YUMA. PATIENT IS STABLE AND VSS. PATIENT TAKEN VIA WC ACCOMAPNIED BY HOSPITAL STAFF AND SON. PATIENT THANKS THIS NURSE AND DIRECTOR OF MUSIC FOR GOOD CARE.
--- NOTE | 2019-11-22 19:30 | NUR ---
PT ARRIVED TO FLOOR AOX4, WITHOUT DISTRESS. SON AT BEDSIDE. PT PLACED ON CONTACT ISOLATION FOR HEAD LICE. PT JUST RECIEVED HAIR TREATMENT. IV RIGHT FA IFUSING NS @ 10. CONT PULSE OX IN PLACE. O2 6L/NC. HARD OF HEARING. TELE IN PLACE, HR 92 SR. PLACED ON AND OFF BEDPAN. TURNS SELF. FOLLOWS COMMANDS. DENIES NEEDS AT THIS TIME. CL IN REACH, WILL CTM
[2019-11-23] VITALS: BP 119/60
[2019-11-23 06:31] LABS: BASOPHILS 0.1 % (0-2); EOSINOPHILS 0.3 % (0-7); HEMATOCRIT 39.4 % (36.0-48.0); HEMOGLOBIN 11.8 g/dL (12-16); IMMATURE GRANULOCYTES 1.1 % (0-5); LYMPHOCYTES 3.2 % (15-50); MCH 30.3 pg (26.0-34.0); MCHC 29.9 g/dL (31.0-37.0); MEAN PLATELET VOLUME 9.8 fL (7.4-10.4); MONOCYTES 2.9 % (2-11); NEUTROPHILS 92.4 % (40-80); PLATELET COUNT 169 10x3/uL (130-400); RDW 15.1 % (11.5-14.5); WBC 15.1 10x3/uL (4.8-10.8)
[2019-11-23 06:56] LABS: CALCIUM 8.1 mg/dL (8.5-10.1); CHLORIDE - SERUM 107 mmol/L (98-107); CREATININE - SERUM 0.6 mg/dL (0.6-1.3); MAGNESIUM - SERUM 2.3 mg/dL (1.8-2.4); SODIUM 145 mmol/L (136-145); UREA NITROGEN 25 mg/dL (7-18); eGFR NON AFRICAN AMERICAN > 90 mL/min (90-120)
[2019-11-23 06:58] LABS: CALC OSMOLALITY 294 mosm/kg (275-300); GLUCOSE 137 mg/dL (74-106); POTASSIUM - SERUM 4.4 mmol/L (3.5-5.1)
[2019-11-23 07:00] LABS: CARBON DIOXIDE 40.8 mmol/L (21.0-32.0)
[2019-11-23 08:49] VITALS: BP 127/66
[2019-11-23 12:54] VITALS: BP 140/66
--- NOTE | 2019-11-23 14:26 | NUR ---
NUTRITION F/U PT REMMAINS IN CONTACT ISOLATION. TOLERATING REG MECH SOFT DIET WITH 75 TO 100% INTAKE RECENT MEALS. WILL CONTINUE TO PROVIDE DIET, MONITOR PO INTAKE. RD FOLLOWING
--- NOTE | 2019-11-23 16:50 | NUR ---
PATIENT ONLY NEEDS BIPAP PRN, AND MAY WEAN O2 TOLERATED PER DR. SABILLON.
[2019-11-23 17:49] VITALS: BP 142/69
--- NOTE | 2019-11-23 18:34 | NUR ---
OT NOTE: PT COMPLETED LB HYGIENE WITH BRENT A. PT COMPLETED STANDING WITH CGA. PT COMPLETED BED MOB WITH SBA. [phone] THANK YOU,ZACHARY DEWEY
--- NOTE | 2019-11-23 19:00 | NUR ---
PATIENT RECIEVED LICE TREATMENT SHAMPOO. TOLERATED WITH NO PROBLEMS. TO BE RINSED OUT BY HUMBERTO SHAFFER IN 10 MINUTES. PATIENT IV INTACT. CALL LIGHT WITHIN REACH.
--- NOTE | 2019-11-23 19:25 | NUR ---
PATIENT RESTING IN BED WITH EYES OPEN AND FAMILY AT BEDSIDE. NO ACUTE S/S OF DISTRESS. NO C/O AT THIS TIME. PATIENT IV IN R HAND NORMAL SALINE @ 10 ML/HR. IV IS PATENT WITHOUT REDNESS, SWELLING, OR TENDERNESS. PATIENT IS ON 7L HIGH-FLOW O2. PATIENT IS ON TELEMETRY 69 SINUS RHYTHM. PATIENT IS ON CONTINOUS PULSE OX. PATIENT IS HARD OF HEARING. CALL LIGHT IN PLACE. WILL CONTINUE TO MONITOR.
[2019-11-23 20:00] VITALS: BP 112/55
[2019-11-24] VITALS: BP 121/61
[2019-11-24 04:00] VITALS: BP 113/60
[2019-11-24 05:42] LABS: BASOPHILS 0.1 % (0-2); EOSINOPHILS 0.9 % (0-7); HEMATOCRIT 41.2 % (36.0-48.0); IMMATURE GRANULOCYTES 0.7 % (0-5); LYMPHOCYTES 6.6 % (15-50); MCH 29.7 pg (26.0-34.0); MCHC 29.1 g/dL (31.0-37.0); MEAN PLATELET VOLUME 9.9 fL (7.4-10.4); MONOCYTES 8.6 % (2-11); NEUTROPHILS 83.1 % (40-80); PLATELET COUNT 196 10x3/uL (130-400); RBC 4.04 10x6/uL (4.00-5.40); WBC 14.1 10x3/uL (4.8-10.8)
--- NOTE | 2019-11-24 05:52 | NUR ---
I have reviewed this patient and I concur with the Shift Assessment completed by the Licensed Practical Nurse today this shift.
[2019-11-24 05:53] LABS: CALCIUM 8.2 mg/dL (8.5-10.1); CHLORIDE - SERUM 106 mmol/L (98-107); CREATININE - SERUM 0.7 mg/dL (0.6-1.3); MAGNESIUM - SERUM 2.2 mg/dL (1.8-2.4); POTASSIUM - SERUM 3.8 mmol/L (3.5-5.1); SODIUM 148 mmol/L (136-145); UREA NITROGEN 22 mg/dL (7-18); eGFR NON AFRICAN AMERICAN 88 mL/min (90-120)
[2019-11-24 05:54] LABS: CALC OSMOLALITY 295 mosm/kg (275-300); GLUCOSE 79 mg/dL (74-106)
[2019-11-24 05:55] LABS: CARBON DIOXIDE 44.2 mmol/L (21.0-32.0)
--- NOTE | 2019-11-24 12:58 | NUR ---
SAT PT UP IN BED TO BE ABLE TO EAT LUNCH, REMOVED PT BIPAP FOR NOW, CL IN REACH, NO S/SX OF DISTRESS CONTINUE WITH PLAN OF CARE
[2019-11-24 13:10] VITALS: BP 79/60
[2019-11-24 13:10] LABS: FUNGUS MYCOLOGY CULTURE Preliminary report (())
--- NOTE | 2019-11-24 16:00 | NUR ---
The patient is resting well with her Bipap on, she awakens to her name. She denies pain or needs. Lung sounds are diminished.
--- NOTE | 2019-11-24 18:03 | NUR ---
RECEIVED CALL FROM HS THAT SHE RECEIVED CALL FROM PT FAMILY STATING PT HAS BEEN LYING IN HER OWN FECES AND URINE ALL DAY/ EXPLAINED TO HS THAT PT HAS INCONTINENT EPISODES AND NOT ONLY HAVE I AND AUTO MACHINIST'S BEEN IN TO CLEAN HER BUT ALSO PHYSICAL THERAPY AND OT WELL. PT HAS BEEN CHANGED AT LEAST 4 TIMES THAT I KNOW OF. WENT TO TALK TO SON AND HE WAS NOT IN ROOM. PT STATES SHE DOES NOT NEED TO BE CLEANED AT THIS TIME. TOLD AUTO MACHINIST TO DOCUMENT EACH TIME PT IS CLEANED EVEN IF WE NEED TO WRITE TIME ON WHITE BOARD. CONTINUE WITH PLAN OF CARE
[2019-11-24 18:04] VITALS: BP 84/78
--- NOTE | 2019-11-24 19:20 | NUR ---
PATIENT IN BED RESTING WITH EYES CLOSED. NO S/S OF ACUTE DISTRESS. NO C/O AT THIS TIME. PATIENT HAS IV IN R HAND SALINE LOC. IV IS PATENT WITHOUT REDNESS, SWELLING, OR TENDERNESS. PATIENT IS ON HIGH-FLOW O2 @ 5L. PATIENT IS ON CONTINOUS PULSE OX. PATIENT HAS BIPAP PRN. PATIENT HAS PRODUCTIVE COUGH WITH VERY THICK MUCOUS. PATIENT IS HARD OF HEARING. CALL LIGHT IN PLACE. WILL CONTINUE TO MONITOR.
[2019-11-24 20:00] VITALS: BP 145/56
--- NOTE | 2019-11-24 20:32 | NUR ---
OT NOTE: UPON ENTERING ROOM, PT WAS COVERED IN FECES FOR LB AREA. PT REQUIRED MAX A FOR LB HYGIENE TASKS. PT COMPLETED STANDING WITH SPV. PT COMPLETED BUE AROM AX WITH TASKS. PT EDUCATED ON THE USE OF CALL LIGHT FOR TOILETING AND ALL OTHER NEEDS. [phone] THANK YOU,ZACHARY DEWEY
[2019-11-25 04:48] VITALS: BP 122/87
[2019-11-25 06:19] LABS: BASOPHILS 0.1 % (0-2); EOSINOPHILS 1.4 % (0-7); HEMATOCRIT 39.7 % (36.0-48.0); IMMATURE GRANULOCYTES 0.5 % (0-5); LYMPHOCYTES 9.9 % (15-50); MCH 30.5 pg (26.0-34.0); MCHC 30.2 g/dL (31.0-37.0); MCV 100.8 fL (80.0-100.0); MEAN PLATELET VOLUME 9.7 fL (7.4-10.4); MONOCYTES 10.8 % (2-11); NEUTROPHILS 77.3 % (40-80); PLATELET COUNT 179 10x3/uL (130-400); RBC 3.94 10x6/uL (4.00-5.40); RDW 14.8 % (11.5-14.5); WBC 12.5 10x3/uL (4.8-10.8)
[2019-11-25 06:46] LABS: CALC OSMOLALITY 290 mosm/kg (275-300); CALCIUM 8.4 mg/dL (8.5-10.1); CARBON DIOXIDE 39.6 mmol/L (21.0-32.0); CHLORIDE - SERUM 102 mmol/L (98-107); CREATININE - SERUM 0.6 mg/dL (0.6-1.3); GLUCOSE 76 mg/dL (74-106); MAGNESIUM - SERUM 2.2 mg/dL (1.8-2.4); POTASSIUM - SERUM 3.6 mmol/L (3.5-5.1); SODIUM 145 mmol/L (136-145); UREA NITROGEN 20 mg/dL (7-18); eGFR NON AFRICAN AMERICAN > 90 mL/min (90-120)
[2019-11-25 09:50] VITALS: BP 123/49
--- NOTE | 2019-11-25 09:51 | NUR ---
I have reviewed this patient and I concur with the Shift Assessment completed by the Licensed Practical Nurse today this shift.
--- NOTE | 2019-11-25 10:41 | NUR ---
ASSISTED PT ON BED WARREN BEFORE BREAKFAST AT 0820, PT HAD ON PULL UPS AND ABLE TO LIFT HIPS TO PULL DOWN, PT O2 SATURATION AT 88 WHEN PT AMBULATES BUT THEN GOES BACK UP AFTER COACHING PT TO TAKE DEEP BREATHS. PT NOW SITTING UP AT SIDE OF BED AFTER GETTING PT UP TO [facility], NO S/SX OF DISTRESS CL IN REACH CONTINUE WITH PLAN OF CARE
[2019-11-25 13:37] VITALS: BP 149/65
--- NOTE | 2019-11-25 16:19 | NUR ---
I have reviewed this patient and I concur with the Shift Assessment completed by the Licensed Practical Nurse today this shift.
--- NOTE | 2019-11-25 17:03 | MORECARE ---
CASE MANAGEMENT DISCHARGE SUMMARY PATIENT: DUKE ARREDONDO UNIT: [id number] ADM DATE: 11/13/19 AGE: 69 : 52 SEX: F ROOM/BED: D.2216 AUTHOR: KIRILL,DOC PHYSICIAN: REFERRING PHYSICIAN: ALMA ROSA YANES MD DATE OF SERVICE: 11/25/19 Discharge Plan Patient Name: DUKE ARREDONDO Facility: [facility]:[place] : 1950 Planned Disposition: Anticipated Discharge Date: Discharge Date: Expected LOS: Initial Reviewer: [email or web address] Initial Review Date: 11/15/2019 Generated: 11/25/19 6:03 pm Comments DCP- Discharge Planning Updated by [email or web address]: Carriemadelin Hill on 11/25/19 3:[address] CM met with patient this morning regarding an order for home Trilogy. Patient states she has home O2, Updraft, BSC from [facility] Patient ([facility]). Patient is in agreement contacting [facility] in order to set up the Trilogy. CM spoke with Dr. Schmid concerning potential dc date and he states possibly mid-late next week. CM contacted [facility] with [facility], provided required information, then faxed the order, ABG's, Progress notes to the office. Patient has a managed [facility] insurance and the Trilogy will require prior authorization. CM will continue to follow and assist PRN with DC needs. DCP- Discharge Planning Updated by [email or web address]: Tiffanie Solorio on 11/15/19 4:[address] Patient Name: DUKE ARREDONDO Admission Status: ER Accout number: [id number] Admission Date: 11-13-2019 : 1950 Admission Diagnosis:SEPSIS, UNSPECIFIED ORGANISM Attending: ALMA ROSA YANES Current LOS: 2 Anticipated DC Date: Planned Disposition: Primary Insurance: [employer] PPO Discharge Planning Comments: CM called and spoke with patient's son George Arredondo to complete initial dc planning assessment. Patient is currently sedated and on vent. CM educated him on the CM role and verbal consent given by patient to complete assessment. Patient lives at home with her son and granddaughter where she is independent with her care. At discharge patient plans to return home and feels this is a safe discharge. CM discussed availability of home health, rehab services, and medical equipment. Her family will drive her home upon discharge. Patient has a nebulizer and home o2 (unknown provider ) George denied known discharge needs at this time. CM will continue to follow and will assist as needed with dc plans/needs. Air Intercept Controller: Tiffanie Solorio Appended by Tiffanie Solorio on 11/15/2019 17:33 ACTIVITY THERAPY TEACHER: George patient's son requested a letter from physician stating that she is on home 02 and that it be faxed to [facility] [phone]. for assistance. DCP- Discharge Planning Updated by : Tiffanie Solorio on 11/14/19 6:[address] CM attempted to meet with patient she is currently on vent and there is no family currently available. CM will continue to follow and assist as needed with discharge planning / needs DCPIA - Discharge Planning Initial Assessment Updated by [email or web address]: Tiffanie Solorio on 11/15/19 5:26 pm * Is the patient Alert and Oriented? Yes * How many steps to enter\exit or inside your home? 3-4 * PCP UNKNOWN * [facility] * Preadmission Environment Home with Family * ADLs Independent * Other Equipment WALKER, BSC, HOME 02, NEBULIZER * List name and contact numbers for known caregivers / representatives who currently or will assist patient after discharge: LULU ARREDONDO - [phone] * Verbal permission to speak to the caregivers and representatives has been obtained from the patient. N/A * Community resources currently utilized None * Additional services required to return to the preadmission environment? No * Can the patient safely return to the preadmission environment? Yes * Has this patient been hospitalized within the prior 30 days at any hospital? No Last DP export: 11/15/19 4:38 p Patient Name: DUKE ARREDONDO Page [id number] at 1703 All edits/amendments must be made on the electronic document DICTATION DATE: 11/25/191702 SENIOR SOFTWARE ENGINEER ANALYTICS: BRYNN 11/25/191702 RPT#: [id number] DC DATE: STATUS: ADM IN [facility] [address] [place] [address] END OF REPORT
[2019-11-25 17:52] VITALS: BP 134/65
--- NOTE | 2019-11-25 19:00 | NUR ---
BEDSIDE REPORT RECEIVED. SITTING AT EDGE OF BED. DENIES NEEDS AT THIS TIME. WEARING 5L HFC. CALL LIGHT IN REACH. CPOC.
[2019-11-25 20:00] VITALS: BP 142/61
[2019-11-26] VITALS: BP 106/48
--- NOTE | 2019-11-26 03:21 | NUR ---
RESTING WITH NO DISTRESS. BIPAP ON ORDERED. CALL LIGHT REMAINS IN REACH. DOOR OPEN AND CLOSE TO NURSES STATION FOR CONTINUAL MONITORING. CPOC.
--- NOTE | 2019-11-26 03:23 | NUR ---
I have reviewed this patient and I concur with the Shift Assessment completed by the Licensed Practical Nurse today this shift.
[2019-11-26 04:00] VITALS: BP 99/60
[2019-11-26 05:47] LABS: BASOPHILS 0 % (0-2); EOSINOPHILS 1.5 % (0-7); HEMATOCRIT 39.8 % (36.0-48.0); HEMOGLOBIN 11.9 g/dL (12-16); IMMATURE GRANULOCYTES 0.3 % (0-5); LYMPHOCYTES 13.9 % (15-50); MCHC 29.9 g/dL (31.0-37.0); MCV 100.3 fL (80.0-100.0); MEAN PLATELET VOLUME 9.9 fL (7.4-10.4); MONOCYTES 10.6 % (2-11); NEUTROPHILS 73.7 % (40-80); PLATELET COUNT 212 10x3/uL (130-400); RBC 3.97 10x6/uL (4.00-5.40); RDW 14.5 % (11.5-14.5); WBC 9.4 10x3/uL (4.8-10.8)
--- NOTE | 2019-11-26 07:10 | NUR ---
PT RESTING IN BED. NO SIGNS OF DISTRESS. IV RIGHT HAND PATENT NO REDNESS OR TENDERNESS. ON 5L NC. ON TELEMETRY 62 SR. DENIES ANY FURTHER NEED AT THIS TIME. CALL LIGHT IN REACH. BED LOW POSITION. NO FAMILY AT BEDSIDE.
[2019-11-26 08:55] VITALS: BP 96/57
--- NOTE | 2019-11-26 13:52 | NUR ---
I have reviewed this patient and I concur with the Shift Assessment completed by the Licensed Practical Nurse today this shift.
[2019-11-26 14:15] VITALS: BP 143/63
[2019-11-26 19:08] VITALS: BP 141/86
[2019-11-26 20:00] VITALS: BP 130/63
--- NOTE | 2019-11-26 20:38 | NUR ---
REHAB NOTE - PATIENT IS MANAGED HEALTHCARE AND WILL HAVE ASSESSMENT CONDUCTED ON Wednesday.
--- NOTE | 2019-11-26 22:10 | NUR ---
PATIENT TEARFUL DURING HS MED PASS. ASKED "IS EVERYONE MAD AT ME?" THIS NURSE ASKED "NO, WHY WOULD YOU THINK THAT?" PATIENT REPLIED "BECAUSE THE FUSING MACHINE TENDER PUT MY SCD'S ON WRONG." ASSESSED SCD'S AND THEY WERE FITTED AND POSITIONED CORRECTLY. ASKED PATIENT IF SOMEONE HAD SAID SOMETHING TO HER THAT BOTHERED HER SHE REPLIED "NO I JUST HAVE A LOT GOING ON." PATIENT WENT INTO DETAIL ABOUT PROBLEMS AT HOME WITH THAT HAS "BRAIN DISEASE" AND THAT HE DOES NOT HELP. SHE ALSO STATES "HE IS BIPOLAR AND SCHIZO WITH ONE KIDNEY. HE DOESN'T HELP ME AT ALL." SHE STATES SHE HAS CHILDREN AND SISTERS THAT DO NOT HELP. THIS NURSE ASKED IF SHE HAS HOME HEALTH THAT CAN COME HELP HER AT HOME AND PATIENT REPLIED "NO, NO ONE COMES BECAUSE I HAVE THREE INSIDE PITBULLS." THIS NURSE ASKED "WHO TAKES CARE OF THE PITBULLS?" PATIENT REPLIED "I DO BEST I CAN." SPOKE WITH PATIENT ABOUT HER WELL BEING AFTER DISCHARGE. PATIENT ADMANT THAT THE DOGS WILL REMAIN IN HER HOME EVEN IF HER HEALTH COULD POTENTIALLY BE COMPROMISED. PROVIDED SUPPORT AND UNDERSTANDING TO PATIENT. ASKED IF SHE WOULD LIKE A CONSULT WITH CASE MANAGEMENT AND THE PATIENT REPLIED "THERES NO POINT BECAUSE THEY WON'T COME OUT BECAUSE OF THE DOGS." PATIENT IN BETTER SPIRITS PRIOR TO LEAVING THE ROOM. DENIES FURTHER NEEDS AT THIS TIME. CALL LIGHT IN REACH. SCD'S ON. PUREWICK IN PLACE. CPPOC.
[2019-11-27 00:43] VITALS: BP 109/64
[2019-11-27 04:31] VITALS: BP 131/56
--- NOTE | 2019-11-27 04:44 | NUR ---
PATIENT RESTED WELL THROUGH NIGHT. PATIENT VOIDING WITH NO PROBLEMS OTHER THAN URINE STILL BLOODY. PATIENT STATES "THIS IS HOW ITS BEEN SINCE I HAVE BEEN HERE."
[2019-11-27 04:57] LABS: BASOPHILS 0.1 % (0-2); EOSINOPHILS 1.4 % (0-7); HEMATOCRIT 35.2 % (36.0-48.0); HEMOGLOBIN 10.6 g/dL (12-16); IMMATURE GRANULOCYTES 0.3 % (0-5); LYMPHOCYTES 11.9 % (15-50); MCH 30.2 pg (26.0-34.0); MCHC 30.1 g/dL (31.0-37.0); MCV 100.3 fL (80.0-100.0); MEAN PLATELET VOLUME 9.7 fL (7.4-10.4); MONOCYTES 10.3 % (2-11); PLATELET COUNT 182 10x3/uL (130-400); RBC 3.51 10x6/uL (4.00-5.40); RDW 14.4 % (11.5-14.5); WBC 8.6 10x3/uL (4.8-10.8)
--- NOTE | 2019-11-27 05:50 | NUR ---
I have reviewed this patient and I concur with the Shift Assessment completed by the Licensed Practical Nurse today this shift.
[2019-11-27 06:29] LABS: ALBUMIN 2.2 g/dL (3.4-5.0); ALKALINE PHOSPHATASE 42 U/L (30-120); ALT (SGPT) 26 U/L (10-68); BILIRUBIN - TOTAL 0.42 mg/dL (0.2-1.3); CALC OSMOLALITY 291 mosm/kg (275-300); CALCIUM 7.7 mg/dL (8.5-10.1); CHLORIDE - SERUM 102 mmol/L (98-107); CREATININE - SERUM 0.6 mg/dL (0.6-1.3); GLUCOSE 83 mg/dL (74-106); POTASSIUM - SERUM 3.6 mmol/L (3.5-5.1); SODIUM 146 mmol/L (136-145); UREA NITROGEN 17 mg/dL (7-18); eGFR NON AFRICAN AMERICAN > 90 mL/min (90-120)
[2019-11-27 06:36] LABS: CARBON DIOXIDE 43.4 mmol/L (21.0-32.0)
--- NOTE | 2019-11-27 07:00 | NUR ---
PATIENT RECIEVED THIS AM FROM PREVIOUS NURSE SITTING ON SIDE OF BED. 02 SAT 93-94% ON 4L NC. RESPIRTATIONS ARE NON-LABORED. CL IN REACH
[2019-11-27 09:09] VITALS: BP 161/71
[2019-11-27 12:49] VITALS: BP 134/58
--- NOTE | 2019-11-27 14:27 | MORECARE ---
CASE MANAGEMENT DISCHARGE SUMMARY PATIENT: DUKE ARREDONDO UNIT: [id number] ADM DATE: 11/13/19 AGE: 69 : 52 SEX: F ROOM/BED: D.2216 AUTHOR: KIRILLDOC PHYSICIAN: REFERRING PHYSICIAN: ALMA ROSA YANES MD DATE OF SERVICE: 11/27/19 Discharge Plan Patient Name: DUKE ARREDONDO Facility: [facility]:[place] : 1950 Planned Disposition: Anticipated Discharge Date: Discharge Date: Expected LOS: Initial Reviewer: [email or web address] Initial Review Date: 11/15/2019 Generated: 11/27/19 3:27 pm DCP- Discharge Planning Updated by [id number]: Carrie Hill on 11/25/19 3:[address] CM met with patient this morning regarding an order for home Trilogy. Patient states she has home O2, Updraft, BSC from [facility] Patient ([facility]). Patient is in agreement contacting [facility] in order to set up the Trilogy. CM spoke with Dr. Schmid concerning potential dc date and he states possibly mid-late next week. CM contacted [facility] with [facility], provided required information, then faxed the order, ABG's, Progress notes to the office. Patient has a managed [employer] insurance and the Trilogy will require prior authorization. CM will continue to follow and assist PRN with DC needs. DCP- Discharge Planning Updated by [email or web address]: Tiffanie Solorio on 11/15/19 4:[address] Patient Name: DUKE ARREDONDO Admission Status: ER Accout number: [id number] Admission Date: 11-13-2019 : 1950 Admission Diagnosis:SEPSIS, UNSPECIFIED ORGANISM Attending: ALMA ROSA YANES Current LOS: 2 Anticipated DC Date: Planned Disposition: Primary Insurance: [employer] PPO Discharge Planning Comments: CM called and spoke with patient's son George Arredondo to complete initial dc planning assessment. Patient is currently sedated and on vent. CM educated him on the CM role and verbal consent given by patient to complete assessment. Patient lives at home with her son and granddaughter where she is independent with her care. At discharge patient plans to return home and feels this is a safe discharge. CM discussed availability of home health, rehab services, and medical equipment. Her family will drive her home upon discharge. Patient has a nebulizer and home o2 (unknown provider ) George denied known discharge needs at this time. CM will continue to follow and will assist as needed with dc plans/needs. Bus Escort: Tiffanie Solorio Appended by Tiffanie Solorio on 11/15/2019 17:33 MASTER SCHEDULER: George patient's son requested a letter from physician stating that she is on home 02 and that it be faxed to [facility] [phone]. for assistance. DCP- Discharge Planning Updated by [id number]: Tiffanie Solorio on 11/14/19 6:[address] CM attempted to meet with patient she is currently on vent and there is no family currently available. CM will continue to follow and assist as needed with discharge planning / needs DCPIA - Discharge Planning Initial Assessment Updated by [email or web address]: Tiffanie Solorio on 11/15/19 5:26 pm * Is the patient Alert and Oriented? Yes * How many steps to enter\exit or inside your home? 3-4 * PCP UNKNOWN * [facility] * Preadmission Environment Home with Family * ADLs Independent * Other Equipment WALKER, BSC, HOME 02, NEBULIZER * List name and contact numbers for known caregivers / representatives who currently or will assist patient after discharge: LULU ARREDONDO - [phone] * Verbal permission to speak to the caregivers and representatives has been obtained from the patient. N/A * Community resources currently utilized None * Additional services required to return to the preadmission environment? No * Can the patient safely return to the preadmission environment? Yes * Has this patient been hospitalized within the prior 30 days at any hospital? No External Providers External Provider: [facility] Next Contact Date: Service Request Date: Service Type: Resolution: Reviewer: Comments: Last DP export: 11/25/19 4:03 p Patient Name: DUKE ARREDONDO Page 85111 at 1428 All edits/amendments must be made on the electronic document DICTATION DATE: 11/27/19 1424 CENTER RECEPTIONIST: BRYNN 11/27/19 1425 RPT#: [id number] DC DATE: STATUS: ADM IN [facility] [address] [address] END OF REPORT
--- NOTE | 2019-11-27 14:35 | MORECARE ---
CASE MANAGEMENT DISCHARGE SUMMARY PATIENT: DUKE ARREDONDO UNIT: [id number] ADM DATE: 11/13/19 AGE: 69 : 52 SEX: F ROOM/BED: D.2216 AUTHOR: KIRILL,DOC PHYSICIAN: REFERRING PHYSICIAN: ALMA ROSA YANES MD DATE OF SERVICE: 11/27/19 Discharge Plan Patient Name: DUKE ARREDONDO Facility: [facility]:[place] : 1950 Planned Disposition: Anticipated Discharge Date: Discharge Date: Expected LOS: Initial Reviewer: [email or web address] Initial Review Date: 11/15/2019 Generated: 11/27/19 3:35 pm Comments DCP- Discharge Planning Updated by [email or web address]: Lea Fregoso on 11/27/19 1:[address] I HAVE SENT CLINICAL PAPERWORK TO [facility] WITH [facility] FOR THE TRILIOGY/BIPAP. DCP- Discharge Planning Updated by [email or web address]: Carrie Hlil on 11/25/19 3:[address] CM met with patient this morning regarding an order for home Trilogy. Patient states she has home O2, Updraft, BSC from [facility] ([facility]). Patient is in agreement contacting [facility] in order to set up the Trilogy. CM spoke with Dr. Schmid concerning potential dc date and he states possibly mid-late next week. CM contacted [facility] with [facility], provided required information, then faxed the order, ABG's, Progress notes to the office. Patient has a managed [facility] insurance and the Trilogy will require prior authorization. CM will continue to follow and assist PRN with DC needs. DCP- Discharge Planning Updated by [email or web address]: Tiffanie Solorio on 11/15/19 4:[address] Patient Name: DUKE ARREDONDO Admission Status: ER Accout number: [id number] Admission Date: 11-13-2019 : 1950 Admission Diagnosis:SEPSIS, UNSPECIFIED ORGANISM Attending: ALMA ROSA YANES Current LOS: 2 Anticipated DC Date: Planned Disposition: Primary Insurance: [employer] PPO Discharge Planning Comments: CM called and spoke with patient's son George Arredondo to complete initial dc planning assessment. Patient is currently sedated and on vent. CM educated him on the CM role and verbal consent given by patient to complete assessment. Patient lives at home with her son and granddaughter where she is independent with her care. At discharge patient plans to return home and feels this is a safe discharge. CM discussed availability of home health, rehab services, and medical equipment. Her family will drive her home upon discharge. Patient has a nebulizer and home o2 (unknown provider ) George denied known discharge needs at this time. CM will continue to follow and will assist as needed with dc plans/needs. Hogshead Stripper: Tiffanie Solorio Appended by Tiffanie Solorio on 11/15/2019 17:33 TANK FARM OPERATOR: George patient's son requested a letter from physician stating that she is on home 02 and that it be faxed to [facility] [phone]. for assistance. DCP- Discharge Planning Updated by [email or web address]: Tiffanie Solorio on 11/14/19 6:[address] CM attempted to meet with patient she is currently on vent and there is no family currently available. CM will continue to follow and assist as needed with discharge planning / needs DCPIA - Discharge Planning Initial Assessment Updated by [email or web address]: Tiffanie Solorio on 11/15/19 5:26 pm * Is the patient Alert and Oriented? Yes * How many steps to enter\exit or inside your home? 3-4 * PCP UNKNOWN * [facility] * Preadmission Environment Home with Family * ADLs Independent * Other Equipment WALKER, BSC, HOME 02, NEBULIZER * List name and contact numbers for known caregivers / representatives who currently or will assist patient after discharge: LULU PRAMOD - [phone] * Verbal permission to speak to the caregivers and representatives has been obtained from the patient. N/A * Community resources currently utilized None * Additional services required to return to the preadmission environment? No * Can the patient safely return to the preadmission environment? Yes * Has this patient been hospitalized within the prior 30 days at any hospital? No Last DP export: 11/27/19 1:27 p Patient Name: DUKE ARREDONDO Page 77969 at 1435 All edits/amendments must be made on the electronic document DICTATION DATE: 11/27/191434 INCIDENT RESPONSE ANALYST: BRYNN 11/27/19 143 RPT#: [id number] DC DATE: STATUS: ADM IN [facility] [address] [place] [address] END OF REPORT
[2019-11-27 16:01] VITALS: BP 158/70
--- NOTE | 2019-11-27 16:51 | NUR ---
OT NOTE: PT DOING VERY WELL. BED MOB WITH SPV; EOB SITTING BALANCE IS GOOD. ABLE TO PERFORM UE AND LE DRESSING WITH SET UP AND EXT TIME. SIMPLE GROOMING AND FEEDING WITH SET UP. ABLE TO AMB IN ROOM WITH WALKER AND CGA. ALSO AMB INTO HALLWAY WITH 02 AND MIN ASSIST TO IMPROVE FUNCITONAL ENDURANCE. PT STATES THAT SHE FEELS MUCH BETTER. ALL FUNCTIONAL TRANSFERS WITH CGA. JARAD OSORIO, OTR/L
[2019-11-27 18:26] LABS: HEMATOCRIT 35.6 % (36.0-48.0); HEMOGLOBIN 10.8 g/dL (12-16)
--- NOTE | 2019-11-27 18:28 | NUR ---
PATIENT RESTING WITH NO NEEDS VOICED, CL IN REACH
--- NOTE | 2019-11-27 19:40 | NUR ---
IN BED WITH EYES CLOSED, RESTING QUIETLY. AROUSES EASILY TO VOICE, DENIES PAIN. ABLE TO VOICE NEEDS. WILL NOTE ANY CHANGE.
[2019-11-27 21:03] VITALS: BP 129/58
--- NOTE | 2019-11-27 22:04 | NUR ---
ALERTED TO ROOM, PT WAS ON KNEES AT BEDSIDE. HER NON SKID SOCKS WERE TURNED AROUND AND TWISTED. SHE IS ALERT AND ORIENTED. STATED ON WAY BACK FROM BEDSIDE COMMODE HER FOOT SLIPPED AND SHE DIDNT HAVE ANYTHING TO CEMENTER MACHINE APPLICATOR WITH AND SLIPPED DOWN TO FLOOR, NO APPARENT INJURIES NOTED. VSS T98.6, BP150/62, R20, SP02 96%, P87. FAMILY UNABLE TO BE NOTIFIED AT THIS TIME DUE TO NO PHONE ACCESS, PT STATES SHE IS OK WITH THEM NOT BEING NOTIFIED AT THIS TIME. QUINTON NOTIFIED WITH INSTRUCTIONS TO OBSERVE. NON SKID SOCKS WERE ADJUSTED, BSC WAS MOVED CLOSER, BED ALARM PUT IN PLACE. YELLOW GOWN ON. WILL NOTE ANY CHANGE.
[2019-11-28 00:30] VITALS: BP 130/67
[2019-11-28 04:15] VITALS: BP 147/64
[2019-11-28 06:09] LABS: BASOPHILS 0.2 % (0-2); EOSINOPHILS 1.6 % (0-7); HEMATOCRIT 34.7 % (36.0-48.0); HEMOGLOBIN 10.6 g/dL (12-16); IMMATURE GRANULOCYTES 0.1 % (0-5); LYMPHOCYTES 16.1 % (15-50); MCH 30.5 pg (26.0-34.0); MCHC 30.5 g/dL (31.0-37.0); PLATELET COUNT 202 10x3/uL (130-400); RBC 3.47 10x6/uL (4.00-5.40); RDW 14.8 % (11.5-14.5); WBC 8.6 10x3/uL (4.8-10.8)
[2019-11-28 06:37] LABS: ALBUMIN 2.5 g/dL (3.4-5.0); ALKALINE PHOSPHATASE 51 U/L (30-120); ALT (SGPT) 29 U/L (10-68); BILIRUBIN - TOTAL 0.48 mg/dL (0.2-1.3); CALCIUM 8.2 mg/dL (8.5-10.1); CHLORIDE - SERUM 105 mmol/L (98-107); CREATININE - SERUM 0.6 mg/dL (0.6-1.3); POTASSIUM - SERUM 3.7 mmol/L (3.5-5.1); SODIUM 147 mmol/L (136-145); UREA NITROGEN 14 mg/dL (7-18); eGFR NON AFRICAN AMERICAN > 90 mL/min (90-120)
--- NOTE | 2019-11-28 07:00 | NUR ---
PATIENT RECIEVED SITTING ON SIDE OF BED WITH NO NEEDS VOICED. RESPIRATONS REGULAR AND NONLABORED. CL IN REACH
[2019-11-28 07:01] LABS: CALC OSMOLALITY 290 mosm/kg (275-300); GLUCOSE 70 mg/dL (74-106)
[2019-11-28 07:03] LABS: CARBON DIOXIDE 43.1 mmol/L (21.0-32.0)
[2019-11-28 08:59] VITALS: BP 128/54
[2019-11-28 12:12] VITALS: BP 114/77
--- NOTE | 2019-11-28 14:12 | NUR ---
Nutrition follow-up: Diet: Regular PO intake 100% of most meals Labs reviewed Wt: 182# +BM PO intake good at this time RDN following.
--- NOTE | 2019-11-28 14:46 | NUR ---
OT NOTE: PT DOING VERY WELL. SITTING UP IN CHAIR..ABLE TO CINTIA GOWN AND SOCKS WITH SET UP WHILE IN CHAIR; TOILETING WITH SBA. INDEP WITH BED MOB; AMB WITH RW, 02, AND CGA GREATER THAN 55 FT TO IMPROVE STRENGTH/ENDURANCE. IN ROOM AMBULATION WITHOUT WALKER AND MIN ASSIST. PT HOLDS ON TO FURNITURE IN ROOM. DISCUSSED SAFETY AWARENESS. PT RETURNED TO CHAIR.. REPORTED THAT IT FELT BETTER TO SIT UP. 02 SATS DOWN TO 84 UPON RETURN TO ROOM, HOWEVER, BROUGHT BACK UP TO 90 IN 3 MIN OF PROPER BREATHING TECH. JARAD OSORIO, OTR/L [phone]
[2019-11-28 16:21] LABS: COLOR YELLOW (YELLOW)
[2019-11-28 16:22] LABS: APPEARANCE HAZY (CLEAR); BILIRUBIN NEGATIVE (NEGATIVE); GLUCOSE NEGATIVE (NEGATIVE); KETONE NEGATIVE (NEGATIVE); NITRITE NEGATIVE (NEGATIVE); PROTEIN NEGATIVE (NEGATIVE); RED CELLS - URINE >50 /hpf (0-5); UROBILINOGEN NORMAL (NORMAL)
[2019-11-28 16:23] LABS: BACTERIA FEW /hpf (NEGATIVE); EPITHELIAL CELLS OCC /hpf (0-5)
[2019-11-28 16:49] VITALS: BP 154/53
--- NOTE | 2019-11-28 17:01 | MORECARE ---
CASE MANAGEMENT DISCHARGE SUMMARY PATIENT: DUKE ARREDONDO UNIT: [id number] ADM DATE: 11/13/19 AGE: 69 : 52 SEX: F ROOM/BED: D.2216 AUTHOR: KIRILL,DOC PHYSICIAN: REFERRING PHYSICIAN: ALMA ROSA YANES MD DATE OF SERVICE: 11/28/19 Discharge Plan Patient Name: DUKE ARREDONDO Facility: [facility]:[place] : 1950 Planned Disposition: Anticipated Discharge Date: Discharge Date: Expected LOS: Initial Reviewer: [email or web address] Initial Review Date: 11/15/2019 Generated: 11/28/19 6:00 pm Comments DCP- Discharge Planning Updated by [email or web address]: Lea Fregoso on 11/28/19 3:[address] PER [facility] WITH [facility] THE HOME VENT HAS BEEN APPROVED, JUST NEED TO NOTIFY HIM WHEN THE PATIENT IS DISCHARGED DCP- Discharge Planning Updated by [email or web address]: Lea Fregoso on 11/27/19 1:[address] I HAVE SENT CLINICAL PAPERWORK TO [place] WITH [facility] FOR THE TRILIOGY/BIPAP. DCP- Discharge Planning Updated by [id number]: Carrie Hill on 11/25/19 3:[address] CM met with patient this morning regarding an order for home Trilogy. Patient states she has home O2, Updraft, BSC from [facility] ([facility] Patient is in agreement contacting [facility] in order to set up the Trilogy. NAREN spoke with Dr. Schmid concerning potential dc date and he states possibly mid-late next week. CM contacted Yessy with [facility], provided required information, then faxed the order, ABG's, Progress notes to the office. Patient has a managed [employer] insurance and the Trilogy will require prior authorization. CM will continue to follow and assist PRN with DC needs. DCP- Discharge Planning Updated by [email or web address]: Tiffanie Solorio on 11/15/19 4:[address] Patient Name: DUKE ARREDONDO Admission Status: ER Accout number: [id number] Admission Date: 11-13-2019 : 1950 Admission Diagnosis:SEPSIS, UNSPECIFIED ORGANISM Attending: ALMA ROSA YANES Current LOS: 2 Anticipated DC Date: Planned Disposition: Primary Insurance: [facility] PPO Discharge Planning Comments: CM called and spoke with patient's son George Arredondo to complete initial dc planning assessment. Patient is currently sedated and on vent. CM educated him on the CM role and verbal consent given by patient to complete assessment. Patient lives at home with her son and granddaughter where she is independent with her care. At discharge patient plans to return home and feels this is a safe discharge. CM discussed availability of home health, rehab services, and medical equipment. Her family will drive her home upon discharge. Patient has a nebulizer and home o2 (unknown provider ) George denied known discharge needs at this time. CM will continue to follow and will assist as needed with dc plans/needs. Piano Case Maker: Tiffanie Solorio Appended by iTffanie Solorio on 11/15/2019 17:33 GLASS FRAME FITTER: George patient's son requested a letter from physician stating that she is on home 02 and that it be faxed to [facility] [phone]. for assistance. DCP- Discharge Planning Updated by [email or web address]: Tiffanie Solorio on 11/14/19 6:[address] CM attempted to meet with patient she is currently on vent and there is no family currently available. CM will continue to follow and assist as needed with discharge planning / needs DCPIA - Discharge Planning Initial Assessment Updated by [id number]: Tiffanie Solorio on 11/15/19 5:26 pm * Is the patient Alert and Oriented? Yes * How many steps to enter\exit or inside your home? 3-4 * PCP UNKNOWN * [facility]acy [facility] * Preadmission Environment Home with Family * ADLs Independent * Other Equipment WALKER, BSC, HOME 02, NEBULIZER * List name and contact numbers for known caregivers / representatives who currently or will assist patient after discharge: LULU ARREDONDO - [phone] * Verbal permission to speak to the caregivers and representatives has been obtained from the patient. N/A * Community resources currently utilized None * Additional services required to return to the preadmission environment? No * Can the patient safely return to the preadmission environment? Yes * Has this patient been hospitalized within the prior 30 days at any hospital? No Last DP export: 11/27/19 1:35 p Patient Name: DUKE ARREDONDO Page 10983 at 1701 All edits/amendments must be made on the electronic document DICTATION DATE: 11/28/191699 FRONT DESK ASSOCIATE: BRYNN 11/28/191699 RPT#: [id number] DC DATE: STATUS: ADM IN [facility] [address] [place] [address] END OF REPORT
[2019-11-28 19:30] VITALS: BP 137/90
--- NOTE | 2019-11-28 19:45 | NUR ---
UP IN BED WITH TELEVISION ON. ABLE TO VOICE ALL NEEDS. DENIES PAIN AT THIS TIME. SHOWS NO S/S OF ANY ACUTE DISTRESS. WILL NOTE ANY CHANGE.
[2019-11-29 00:30] VITALS: BP 110/72
--- NOTE | 2019-11-29 04:07 | NUR ---
I have reviewed this patient and I concur with the Shift Assessment completed by the Licensed Practical Nurse today this shift.
[2019-11-29 04:50] VITALS: BP 128/53
[2019-11-29 05:12] LABS: BASOPHILS 0.1 % (0-2); EOSINOPHILS 1.8 % (0-7); HEMOGLOBIN 10.3 g/dL (12-16); IMMATURE GRANULOCYTES 0.1 % (0-5); LYMPHOCYTES 18.6 % (15-50); MCH 29.7 pg (26.0-34.0); MCHC 29.4 g/dL (31.0-37.0); MCV 100.9 fL (80.0-100.0); MEAN PLATELET VOLUME 9.8 fL (7.4-10.4); MONOCYTES 8.8 % (2-11); NEUTROPHILS 70.6 % (40-80); PLATELET COUNT 176 10x3/uL (130-400); RBC 3.47 10x6/uL (4.00-5.40); RDW 15.1 % (11.5-14.5); WBC 7.2 10x3/uL (4.8-10.8)
[2019-11-29 05:48] LABS: ALBUMIN 2.3 g/dL (3.4-5.0); ALKALINE PHOSPHATASE 45 U/L (30-120); ALT (SGPT) 31 U/L (10-68); CHLORIDE - SERUM 107 mmol/L (98-107); CREATININE - SERUM 0.7 mg/dL (0.6-1.3); POTASSIUM - SERUM 3.7 mmol/L (3.5-5.1); PROTEIN - SERUM 5.1 g/dL (6.4-8.2); SODIUM 147 mmol/L (136-145); UREA NITROGEN 13 mg/dL (7-18); eGFR NON AFRICAN AMERICAN 88 mL/min (90-120)
[2019-11-29 06:10] LABS: CALC OSMOLALITY 289 mosm/kg (275-300); GLUCOSE 68 mg/dL (74-106)
[2019-11-29 06:11] LABS: CARBON DIOXIDE 42.1 mmol/L (21.0-32.0)
[2019-11-29 08:20] VITALS: BP 135/67
[2019-11-29] MEDS ORDERED: PREDNISONE10 MG PO (13:24)
--- NOTE | 2019-11-29 14:50 | MORECARE ---
CASE MANAGEMENT DISCHARGE SUMMARY PATIENT: DUKE ARREDONDO UNIT: [id number] ADM DATE: 11/13/19 AGE: 69 : 52 SEX: F ROOM/BED: D.2216 AUTHOR: KIRILL,DOC PHYSICIAN: REFERRING PHYSICIAN: ALMA ROSA YANES MD DATE OF SERVICE: 11/29/19 Discharge Plan Patient Name: DUKE ARREDONDO Facility: [facility]:[place] : 1950 Planned Disposition: Anticipated Discharge Date: Discharge Date: Expected LOS: Initial Reviewer: [email or web address] Initial Review Date: 11/15/2019 Generated: 11/29/19 3:50 pm Comments DCP- Discharge Planning Updated by [email or web address]: Lea Fregoso on 11/29/19 1:[address] SPOKE WITH IVAN WITH INPATIENT REHAB AND SHE STATED THAT THE CLINICALS WERE NOT SENT TILL LAST NIGHT, PAT[facility] WHEN AUTH IS OBTAINED DCP- Discharge Planning Updated by [email or web address]: Lea Fregoso on 11/28/19 3:[address] PER [facility] WITH [facility] THE HOME VENT HAS BEEN APPROVED, JUST NEED TO NOTIFY HIM WHEN THE PATIENT IS DISCHARGED DCP- Discharge Planning Updated by [email or web address]: Lea Fregoso on 11/27/19 1:[address] I HAVE SENT CLINICAL PAPERWORK TO [facility] WITH [facility] FOR THE TRILIOGY/BIPAP. DCP- Discharge Planning Updated by [email or web address]: Carrie Hill on 11/25/19 3:[address] CM met with patient this morning regarding an order for home Trilogy. Patient states she has home O2, Updraft, BSC from [facility] ([facility]). Patient is in agreement contacting [facility] in order to set up the Trilogy. CM spoke with Dr. Schmid concerning potential dc date and he states possibly mid-late next week. CM contacted Yessy with [facility], provided required information, then faxed the order, ABG's, Progress notes to the office. Patient has a managed [employer] insurance and the Trilogy will require prior authorization. CM will continue to follow and assist PRN with DC needs. DCP- Discharge Planning Updated by [id number]: Tiffanie Solorio on 11/15/19 4:[address] Patient Name: DUKE ARREDONDO Admission Status: ER Accout number: [id number] Admission Date: 11-13-2019 : 1950 Admission Diagnosis:SEPSIS, UNSPECIFIED ORGANISM Attending: ALMA ROSA YANES Current LOS: 2 Anticipated DC Date: Planned Disposition: Primary Insurance: [facility] PPO Discharge Planning Comments: CM called and spoke with patient's son George Arredondo to complete initial dc planning assessment. Patient is currently sedated and on vent. CM educated him on the CM role and verbal consent given by patient to complete assessment. Patient lives at home with her son and granddaughter where she is independent with her care. At discharge patient plans to return home and feels this is a safe discharge. CM discussed availability of home health, rehab services, and medical equipment. Her family will drive her home upon discharge. Patient has a nebulizer and home o2 (unknown provider ) George denied known discharge needs at this time. CM will continue to follow and will assist as needed with dc plans/needs. Guillotine Trimmer: Tiffanie Solorio Appended by Tiffanie Solorio on 11/15/2019 17:33 ENTRY LEVEL SOFTWARE ENGINEER: George patient's son requested a letter from physician stating that she is on home 02 and that it be faxed to [facility] [phone]. for assistance. DCP- Discharge Planning Updated by [email or web address]: Tiffanie Solorio on 11/14/19 6:[address] CM attempted to meet with patient she is currently on vent and there is no family currently available. CM will continue to follow and assist as needed with discharge planning / needs DCPIA - Discharge Planning Initial Assessment Updated by [email or web address]: Tiffanie Solorio on 11/15/19 5:26 pm * Is the patient Alert and Oriented? Yes * How many steps to enter\exit or inside your home? 3-4 * PCP UNKNOWN * [facility]acy [facility] * Preadmission Environment Home with Family * ADLs Independent * Other Equipment WALKER, BSC, HOME 02, NEBULIZER * List name and contact numbers for known caregivers / representatives who currently or will assist patient after discharge: LULU ARREDONDO - [phone] * Verbal permission to speak to the caregivers and representatives has been obtained from the patient. N/A * Community resources currently utilized None * Additional services required to return to the preadmission environment? No * Can the patient safely return to the preadmission environment? Yes * Has this patient been hospitalized within the prior 30 days at any hospital? No Last DP export: 11/28/19 4:00 p Patient Name: DUKE ARREDONDO Page 05842 at 1450 All edits/amendments must be made on the electronic document DICTATION DATE: 11/29/191449 FINANCIAL REPORTING SPECIALIST: BRYNN 11/29/191449 RPT#: [id number] DC DATE: STATUS: ADM IN [facility] [address] [place] [address] END OF REPORT
--- NOTE | 2019-11-29 15:14 | NUR ---
OT NOTE: PT VERY LETHARGIC IN AM.. UNABLE TO AROUSE PT.. IN PM. PT UP IN CHAIR. PROVIDED PT WITH WASH CLOTH AND WAS ABLE TO WASH FACE, HANDS, AND UPPER BODY. PERFORMED TOILETING WITH MOD I WITH USE OF BS COMMODE. PROVIDED PT WITH DISPOSABLE SCRUBS.. SHE WAS ABLE TO CINTIA PANTS AND SOCKS WITH SET UP; CLOTHING MGMT INDEP; FUNCITONAL TRANSFERS WITH SBA. EDUCATED ON EXS TO BE PERFORMED AT HOME. PT PLANNING TO DC HOME TODAY. JARAD OSORIO, OTR/L [phone]
--- NOTE | 2019-11-29 15:41 | NUR ---
OT NOTE: PT COMPLETED SIMPLE UB HYGIENE TASKS WITH SET UP AT EOB. PT COMPLETED BED MOB WITH SBA-CGA. PT COMPLETED UE AROM AXS. [phone] THANK YOU,ZACHARY DEWEY
[2019-11-29 17:53] VITALS: BP 147/54
[2019-11-29 18:08] VITALS: BP 126/65
--- NOTE | 2019-11-29 19:35 | NUR ---
IN RECLINER WITH SON AT BEDSIDE. VERY UPSET AT ORDERS TO GO TO REHAB, THIS NURSE ENCOURAGED PT TO TALK TO CASE MANAGEMENT IN MORNING AND [facility] DESIRES. PT FINALLY SETTLED DOWN AND RELAXED FOR EVENING. WILL NOTE ANY CHANGE.
[2019-11-29 21:05] VITALS: BP 139/57
[2019-11-30 01:36] VITALS: BP 138/60
--- NOTE | 2019-11-30 05:52 | NUR ---
I have reviewed this patient and I concur with the Shift Assessment completed by the Licensed Practical Nurse today this shift.
[2019-11-30 06:14] VITALS: BP 132/75
[2019-11-30 06:40] LABS: BASOPHILS 0.1 % (0-2); EOSINOPHILS 2.3 % (0-7); HEMATOCRIT 35.9 % (36.0-48.0); HEMOGLOBIN 10.6 g/dL (12-16); IMMATURE GRANULOCYTES 0.2 % (0-5); LYMPHOCYTES 16.3 % (15-50); MCH 29.5 pg (26.0-34.0); MCHC 29.5 g/dL (31.0-37.0); MONOCYTES 9.7 % (2-11); NEUTROPHILS 71.4 % (40-80); PLATELET COUNT 192 10x3/uL (130-400); RBC 3.59 10x6/uL (4.00-5.40); RDW 14.9 % (11.5-14.5); WBC 8.8 10x3/uL (4.8-10.8)
[2019-11-30 07:10] LABS: ALBUMIN 2.6 g/dL (3.4-5.0); ALKALINE PHOSPHATASE 50 U/L (30-120); ALT (SGPT) 33 U/L (10-68); BILIRUBIN - TOTAL 0.46 mg/dL (0.2-1.3); CALC OSMOLALITY 288 mosm/kg (275-300); CALCIUM 8.5 mg/dL (8.5-10.1); CARBON DIOXIDE 39.7 mmol/L (21.0-32.0); CHLORIDE - SERUM 105 mmol/L (98-107); CREATININE - SERUM 0.7 mg/dL (0.6-1.3); GLUCOSE 76 mg/dL (74-106); PROTEIN - SERUM 5.3 g/dL (6.4-8.2); SODIUM 145 mmol/L (136-145); UREA NITROGEN 16 mg/dL (7-18); eGFR NON AFRICAN AMERICAN 88 mL/min (90-120)
--- NOTE | 2019-11-30 07:59 | NUR ---
PT IS SITTING UP IN BED WITH SON AT [facility], PT IS ADAMENT ABOUT NOT GOING TO REHAB AND GOING HOME INSTEAD. PT IS STILL UPSET ABOUT HOME MEDS NOT BEING FOUND. PT STATES WHILE ON M3 SHE HAD HER HOME MEDS HERE WITH HER. I CALLED PHARMACY WELL NURSE THAT HAD PT ON M3 PETRA [place] AND JAIL GUARD AT THE TIME PT WAS MOVED MONE AND BOTH TOLD ME THAT THEY DID NOT RECALL PT HAVING ANY MEDS WITH HER, I CALLED SON AND HE SAID SHE HAD THEM IN CLEAR PLASTIC BAG AND HE IS CERTAIN THAT HE DID NOT TAKE THEM HOME AND HE REMEMBERS JAIL GUARD PACKING THEM UP. PER DEENA SHORE, SHE DID NOT SEE ANY MEDICATIONS EXCEPT LICE TREATMENT AT THE TIME AND THAT WAS THE ONLY MEDS THAT WERE PACKED. PT AND SON ARE VERY UPSET, BROUGHT THIS TO UNIT MANAGERS ATTENTION. CONTINUE WITH PLAN OF CARE
[2019-11-30 09:31] VITALS: BP 150/81
--- NOTE | 2019-11-30 12:22 | NUR ---
OT NOTE: PT ALERT.. SON AT BEDSIDE.. PT AND SON READY TO GO HOME. PT ABLE TO CINTIA SOCKS AND GOWN WITH SET UP; TOILETING WITH BS COMMODE WITH SBA. SPV FOR CLOTHING MGMT. IN ROOM AMBULATION WITH O2 AND WALKER AND CGA. PT STRENGHT AND ENDURANCE IMPROVING. AMB INTO HALLWAY GREATER THAN 150' WITHOUT REST BREAK. PT SOB AND 02 SATS LOW UPON RETURN TO ROOM BUT QUICKLY RETURNED TO 90 WITH PROPER BREATHING TECH. JARAD OSORIO, OTR/L [phone]
--- NOTE | 2019-11-30 12:39 | MORECARE ---
CASE MANAGEMENT DISCHARGE SUMMARY PATIENT: DUKE ARREDONDO UNIT: [id number] ADM DATE: 11/13/19 AGE: 69 : 54 SEX: F ROOM/BED: D.2216 AUTHOR: KIRILL,DOC PHYSICIAN: REFERRING PHYSICIAN: ALMA ROSA YANES MD DATE OF SERVICE: 11/30/19 Discharge Plan Patient Name: DUKE ARREDONDO Facility: [facility]:[place] : 1950 Planned Disposition: Anticipated Discharge Date: Discharge Date: Expected LOS: Initial Reviewer: [email or web address] Initial Review Date: 11/15/2019 Generated: 11/30/19 1:38 pm Comments DCP- Discharge Planning Updated by [id number]: eLa Fregoso on 11/30/19 11:[address] PATIENT WANTS TO DISCHARGE HOME WITH [facility]. CHANTELLE SIGNED AND PLACED IN IN CHART. IMM SERVED AND EXPLAINED. PATIENT'S SON AT BEDSIDE HE WAS GOING TO GO HOME AND GET HER PORTABLE O2. I HAVE CONTACTED CHALO WITH [facility] PATIENT TO LET THEM KNOW THAT SHE IS BEING DISCHARGED AND THEY WILL DELIVER HER TRILIOGY TO HER HOME TODAY. PATIENT DENIES ANY OTHER NEEDS AT THIS TIME. CM WILL CONTINUE TO FOLLOW AND ASSIST NEEDED DCP- Discharge Planning Updated by [email or web address]: Lea Fregoso on 11/29/19 1:[address] SPOKE WITH IVAN WITH [facility] AND SHE STATED THAT THE CLINICALS WERE NOT SENT TILL LAST NIGHT, PATIENT CAN BE DISCHARGED TO [facility] WHEN AUTH IS OBTAINED DCP- Discharge Planning Updated by [id number]: Lea Fregoso on 11/28/19 3:[address] PER CHALO WITH [facility] PATIENT THE HOME VENT HAS BEEN APPROVED, JUST NEED TO NOTIFY HIM WHEN THE PATIENT IS DISCHARGED DCP- Discharge Planning Updated by [email or web address]: Lea Fregoso on 11/27/19 1:[address] I HAVE SENT CLINICAL PAPERWORK TO CHALO WITH [facility] PATIENT FOR THE TRILIOGY/BIPAP. DCP- Discharge Planning Updated by [id number]: Carrie iHll on 11/25/19 3:[address] CM met with patient this morning regarding an order for home Trilogy. Patient states she has home O2, Updraft, BSC from [facility] Patient ([facility]). Patient is in agreement contacting [facility] in order to set up the Trilogy. CM spoke with Dr. Schmid concerning potential dc date and he states possibly mid-late next week. CM contacted Yessy with [facility], provided required information, then faxed the order, ABG's, Progress notes to the office. Patient has a managed [facility] insurance and the Trilogy will require prior authorization. CM will continue to follow and assist PRN with DC needs. DCP- Discharge Planning Updated by [email or web address]: Tiffanie Solorio on 11/15/19 4:[address] Patient Name: DUKE ARREDONDO Admission Status: ER Accout number: [id number] Admission Date: 11-13-2019 : 1950 Admission Diagnosis:SEPSIS, UNSPECIFIED ORGANISM Attending: ALMA ROSA YANES Current LOS: 2 Anticipated DC Date: Planned Disposition: Primary Insurance: [facility] PPO Discharge Planning Comments: CM called and spoke with patient's son George Arredondo to complete initial dc planning assessment. Patient is currently sedated and on vent. CM educated him on the CM role and verbal consent given by patient to complete assessment. Patient lives at home with her son and granddaughter where she is independent with her care. At discharge patient plans to return home and feels this is a safe discharge. CM discussed availability of home health, rehab services, and medical equipment. Her family will drive her home upon discharge. Patient has a nebulizer and home o2 (unknown provider ) George denied known discharge needs at this time. CM will continue to follow and will assist as needed with dc plans/needs. Explosives Engineer: Tiffanie Solorio Appended by Tiffanie Solorio on 11/15/2019 17:33 SUPERVISOR SALVAGE: George pan's son requested a letter from physician stating that she is on home 02 and that it be faxed to [employer] [phone]. for assistance. DCP- Discharge Planning Updated by [id number]: Tiffanie Solorio on 11/14/19 6:[address] CM attempted to meet with patient she is currently on vent and there is no family currently available. CM will continue to follow and assist as needed with discharge planning / needs DCPIA - Discharge Planning Initial Assessment Updated by [email or web address]: Tiffanie Solorio on 11/15/19 5:26 pm * Is the patient Alert and Oriented? Yes * How many steps to enter\exit or inside your home? 3-4 * PCP UNKNOWN * [facility] * Preadmission Environment Home with Family * ADLs Independent * Other Equipment WALKER, BSC, HOME 02, NEBULIZER * List name and contact numbers for known caregivers / representatives who currently or will assist patient after discharge: LULU ARREDONDO - [phone] * Verbal permission to speak to the caregivers and representatives has been obtained from the patient. N/A * Community resources currently utilized None * Additional services required to return to the preadmission environment? No * Can the patient safely return to the preadmission environment? Yes * Has this patient been hospitalized within the prior 30 days at any hospital? No Coverage Notice Reviewer: [id number] Fregoso Notice Issued Date-Time: 11/30/2019 12:30 Notice Type: IM Discharge Notice Notice Delivered To: Patient Relationship to Patient: Buckle Strap Drum Operator Name: Delivery Method: HAND - Hand Delivered Marie Days: Prior Verbal Notification: Recipient Understood Notice: Yes Recipient Signature: Yes Med Rec Note Co-signed by Attending: Coverage Notice Comment: Reviewer: [id number] Fregoso Notice Issued Date-Time: 11/30/2019 12:30 Notice Type: Patient Choice Letter Notice Delivered To: Patient Relationship to Patient: Buckle Strap Drum Operator Name: Delivery Method: - Marie Days: Prior Verbal Notification: Recipient Understood Notice: Recipient Signature: Med Rec Note Co-signed by Attending: Coverage Notice Comment: Last DP export: 11/29/19 1:50 p Patient Name: DUKE ARREDONDO Page [id number] at 1239 All edits/amendments must be made on the electronic document DICTATION DATE: 11/30/19 1238 CONTINUOUS IMPROVEMENT FACILITATOR: BRYNN 11/30/19 1238 RPT#: [id number] DC DATE: STATUS: ADM IN [facility] [address] [place] [address] END OF REPORT
--- NOTE | 2019-11-30 12:47 | MORECARE ---
CASE MANAGEMENT DISCHARGE SUMMARY PATIENT: DUKE ARREDONDO UNIT: [id number] ADM DATE: 11/13/19 AGE: 69 : 52 SEX: F ROOM/BED: D.2216 AUTHOR: KIRILL,DOC PHYSICIAN: REFERRING PHYSICIAN: ALMA ROSA YANES MD DATE OF SERVICE: 11/30/19 Discharge Plan Patient Name: DUKE ARREDONDO Facility: [facility]:[place] : 1950 Planned Disposition: Anticipated Discharge Date: Discharge Date: Expected LOS: Initial Reviewer: [id number] Initial Review Date: 11/15/2019 Generated: 11/30/19 1:47 pm Comments DCP- Discharge Planning Updated by [id number]: Lea Fregoso on 11/30/19 11:[address] PATIENT WANTS TO DISCHARGE HOME WITH [employer] [facility]. CHANTELLE SIGNED AND PLACED IN IN CHART. IMM SERVED AND EXPLAINED. PATIENT'S SON AT BEDSIDE HE WAS GOING TO GO HOME AND GET HER PORTABLE O2. I HAVE CONTACTED CHALO WITH [facility] PATIENT TO LET THEM KNOW THAT SHE IS BEING DISCHARGED AND THEY WILL DELIVER HER TRILIOGY TO HER HOME TODAY. PATIENT DENIES ANY OTHER NEEDS AT THIS TIME. CM WILL CONTINUE TO FOLLOW AND ASSIST NEEDED DCP- Discharge Planning Updated by [id number]: Lea Fregoso on 11/29/19 1:[address] SPOKE WITH IVAN WITH [facility] AND SHE STATED THAT THE CLINICALS WERE NOT SENT TILL LAST NIGHT, PATIENT CAN BE DISCHARGED TO [facility] WHEN AUTH IS OBTAINED DCP- Discharge Planning Updated by [email or web address]: Lea Fregoso on 11/28/19 3:[address] PER CHALO WITH [facility] PATIENT THE HOME VENT HAS BEEN APPROVED, JUST NEED TO NOTIFY HIM WHEN THE PATIENT IS DISCHARGED DCP- Discharge Planning Updated by [id number]: Lea Fregoso on 11/27/19 1:[address] I HAVE SENT CLINICAL PAPERWORK TO CHALO WITH [facility] PATIENT FOR THE TRILIOGY/BIPAP. DCP- Discharge Planning Updated by [email or web address]: Carrie Hill on 11/25/19 3:[address] CM met with patient this morning regarding an order for home Trilogy. Patient states she has home O2, Updraft, BSC from [facility] Patient ([facility]). Patient is in agreement contacting [facility] in order to set up the Trilogy. CM spoke with Dr. Schmid concerning potential dc date and he states possibly mid-late next week. CM contacted Yessy with [facility], provided required information, then faxed the order, ABG's, Progress notes to the office. Patient has a managed [facility] insurance and the Trilogy will require prior authorization. CM will continue to follow and assist PRN with DC needs. DCP- Discharge Planning Updated by [id number]: Tiffanie Solorio on 11/15/19 4:[address] Patient Name: DUKE ARREDONDO Admission Status: ER Accout number: [id number] Admission Date: 11-13-2019 : 1950 Admission Diagnosis:SEPSIS, UNSPECIFIED ORGANISM Attending: ALMA ROSA YANES Current LOS: 2 Anticipated DC Date: Planned Disposition: Primary Insurance: [facility] PPO Discharge Planning Comments: CM called and spoke with patient's son George Arredondo to complete initial dc planning assessment. Patient is currently sedated and on vent. CM educated him on the CM role and verbal consent given by patient to complete assessment. Patient lives at home with her son and granddaughter where she is independent with her care. At discharge patient plans to return home and feels this is a safe discharge. CM discussed availability of home health, rehab services, and medical equipment. Her family will drive her home upon discharge. Patient has a nebulizer and home o2 (unknown provider ) George denied known discharge needs at this time. CM will continue to follow and will assist as needed with dc plans/needs. Audio Visual Facilities Engineer: Tiffanie Solorio Appended by Tiffanie Solorio on 11/15/2019 17:33 REVENUE CYCLE SPECIALIST: George pan's son requested a letter from physician stating that she is on home 02 and that it be faxed to [employer] [phone]. for assistance. DCP- Discharge Planning Updated by [email or web address]: Tiffanie Solorio on 11/14/19 6:[address] CM attempted to meet with patient she is currently on vent and there is no family currently available. CM will continue to follow and assist as needed with discharge planning / needs DCPIA - Discharge Planning Initial Assessment Updated by [email or web address]: Tiffanie Solorio on 11/15/19 5:26 pm * Is the patient Alert and Oriented? Yes * How many steps to enter\exit or inside your home? 3-4 * PCP UNKNOWN * [facility]acy [facility] * Preadmission Environment Home with Family * ADLs Independent * Other Equipment WALKER, BSC, HOME 02, NEBULIZER * List name and contact numbers for known caregivers / representatives who currently or will assist patient after discharge: LULU ARREDONDO - [phone] * Verbal permission to speak to the caregivers and representatives has been obtained from the patient. N/A * Community resources currently utilized None * Additional services required to return to the preadmission environment? No * Can the patient safely return to the preadmission environment? Yes * Has this patient been hospitalized within the prior 30 days at any hospital? No External Providers External Provider: [employer] Next Contact Date: Service Request Date: Service Type: Resolution: Reviewer: Comments: Coverage Notice Reviewer: [id number] Marry Fregoso Notice Issued Date-Time: 11/30/2019 12:30 Notice Type: IM Discharge Notice Notice Delivered To: Patient Relationship to Patient: Waist Fitter Name: Delivery Method: HAND - Hand Delivered Marie Days: Prior Verbal Notification: Recipient Understood Notice: Yes Recipient Signature: Yes Med Rec Note Co-signed by Attending: Coverage Notice Comment: Reviewer: [id number] Fregoso Notice Issued Date-Time: 11/30/2019 12:30 Notice Type: Patient Choice Letter Notice Delivered To: Patient Relationship to Patient: Waist Fitter Name: Delivery Method: HAND - Hand Delivered Marie Days: Prior Verbal Notification: Recipient Understood Notice: Yes Recipient Signature: Yes Med Rec Note Co-signed by Attending: Coverage Notice Comment: [employer] FOR [employer] Last DP export: 11/30/19 11:39 a Patient Name: DUKE ARREDONDO Page [phone] at 1247 All edits/amendments must be made on the electronic document DICTATION DATE: 11/30/191246 BLOCK FEEDER: BRYNN 11/30/19 1247 RPT#: [id number] DC DATE: STATUS: ADM IN [facility] [address] [place] [address] END OF REPORT
[2019-11-30 13:44] VITALS: BP 118/82
[2019-11-30 14:04] VITALS: BP 118/82
--- NOTE | 2019-11-30 14:33 | NUR ---
WENT OVER PT INSTRUCTIONS AND FOLLOW UP APPOINTMENTS, ALL QUESTIONS ANSWERED
--- NOTE | 2019-11-30 15:46 | NUR ---
I have reviewed this patient and I concur with the Shift Assessment completed by the Licensed Practical Nurse today this shift.
--- NOTE | 2019-12-02 15:48 | MORECARE ---
CASE MANAGEMENT DISCHARGE SUMMARY PATIENT: DUKE ARREDONDO UNIT: [id number] ADM DATE: 11/13/19 AGE: 69 : 52 SEX: F ROOM/BED: D.2216 AUTHOR: KIRILL,DOC PHYSICIAN: REFERRING PHYSICIAN: ALMA ROSA YANES MD DATE OF SERVICE: 12/02/19 Discharge Plan Patient Name: DUKE ARREDONDO Facility: [facility]:[place] : 1950 Planned Disposition: Anticipated Discharge Date: Discharge Date: 11/30/2019 Expected LOS: Initial Reviewer: [id number] Initial Review Date: 11/15/2019 Generated: 12/02/19 4:48 pm Comments DCP- Discharge Planning Updated by [id number]: Lea Fregoso on 11/30/19 11:[address] PATIENT WANTS TO DISCHARGE HOME WITH [employer] [facility]. CHANTELLE SIGNED AND PLACED IN IN CHART. IMM SERVED AND EXPLAINED. PATIENT'S SON AT BEDSIDE HE WAS GOING TO GO HOME AND GET HER PORTABLE O2. I HAVE CONTACTED CHALO WITH [facility] PATIENT TO LET THEM KNOW THAT SHE IS BEING DISCHARGED AND THEY WILL DELIVER HER TRILIOGY TO HER HOME TODAY. PATIENT DENIES ANY OTHER NEEDS AT THIS TIME. CM WILL CONTINUE TO FOLLOW AND ASSIST NEEDED DCP- Discharge Planning Updated by [email or web address]: Lea Fregoso on 11/29/19 1:[address] SPOKE WITH IVAN WITH [facility] AND SHE STATED THAT THE CLINICALS WERE NOT SENT TILL LAST NIGHT, PATIENT CAN BE DISCHARGED TO [facility] WHEN AUTH IS OBTAINED DCP- Discharge Planning Updated by [id number]: Lea Fregoso on 11/28/19 3:[address] PER CHALO WITH [facility] PATIENT THE HOME VENT HAS BEEN APPROVED, JUST NEED TO NOTIFY HIM WHEN THE PATIENT IS DISCHARGED DCP- Discharge Planning Updated by [id number]: Lea Fregoso on 11/27/19 1:[address] I HAVE SENT CLINICAL PAPERWORK TO CHALO WITH [facility] PATIENT FOR THE TRILIOGY/BIPAP. DCP- Discharge Planning Updated by [id number]: Carrie Hill on 11/25/19 3:[address] CM met with patient this morning regarding an order for home Trilogy. Patient states she has home O2, Updraft, BSLittle from [facility] Patient ([facility]). Patient is in agreement contacting [facility] in order to set up the Trilogy. CM spoke with Dr. Schmid concerning potential dc date and he states possibly mid-late next week. CM contacted Yessy with [facility], provided required information, then faxed the order, ABG's, Progress notes to the office. Patient has a managed [employer] insurance and the Trilogy will require prior authorization. CM will continue to follow and assist PRN with DC needs. DCP- Discharge Planning Updated by [id number]: Tiffanie Solorio on 11/15/19 4:[address] Patient Name: DUKE ARREDONDO Admission Status: ER Accout number: [id number] Admission Date: 11-13-2019 : 1950 Admission Diagnosis:SEPSIS, UNSPECIFIED ORGANISM Attending: ALMA ROSA YANES Current LOS: 2 Anticipated DC Date: Planned Disposition: Primary Insurance: [facility] PPO Discharge Planning Comments: CM called and spoke with patient's son George Arredondo to complete initial dc planning assessment. Patient is currently sedated and on vent. CM educated him on the CM role and verbal consent given by patient to complete assessment. Patient lives at home with her son and granddaughter where she is independent with her care. At discharge patient plans to return home and feels this is a safe discharge. CM discussed availability of home health, rehab services, and medical equipment. Her family will drive her home upon discharge. Patient has a nebulizer and home o2 (unknown provider ) George denied known discharge needs at this time. CM will continue to follow and will assist as needed with dc plans/needs. Lieutenant Colonel: Tiffanie Solorio Appended by Tiffanie Solorio on 11/15/2019 17:33 OPERATION MANAGER: George pan's son requested a letter from physician stating that she is on home 02 and that it be faxed to [facility] [phone]. for assistance. DCP- Discharge Planning Updated by [id number]: Tiffanie Solorio on 11/14/19 6:[address] CM attempted to meet with patient she is currently on vent and there is no family currently available. CM will continue to follow and assist as needed with discharge planning / needs DCPIA - Discharge Planning Initial Assessment Updated by [email or web address]: Tiffanie Solorio on 11/15/19 5:26 pm * Is the patient Alert and Oriented? Yes * How many steps to enter\exit or inside your home? 3-4 * PCP UNKNOWN * [facility]acy [facility] * Preadmission Environment Home with Family * ADLs Independent * Other Equipment WALKER, BSC, HOME 02, NEBULIZER * List name and contact numbers for known caregivers / representatives who currently or will assist patient after discharge: LULU ARREDONDO - [phone] * Verbal permission to speak to the caregivers and representatives has been obtained from the patient. N/A * Community resources currently utilized None * Additional services required to return to the preadmission environment? No * Can the patient safely return to the preadmission environment? Yes * Has this patient been hospitalized within the prior 30 days at any hospital? No Coverage Notice Reviewer: [id number] Marry Fregoso Notice Issued Date-Time: 11/30/2019 12:30 Notice Type: IM Discharge Notice Notice Delivered To: Patient Relationship to Patient: Natural Gas Engineer Name: Delivery Method: HAND - Hand Delivered Marie Days: Prior Verbal Notification: Recipient Understood Notice: Yes Recipient Signature: Yes Med Rec Note Co-signed by Attending: Coverage Notice Comment: Reviewer: [id number] Fregoso Notice Issued Date-Time: 11/30/2019 12:30 Notice Type: Patient Choice Letter Notice Delivered To: Patient Relationship to Patient: Natural Gas Engineer Name: Delivery Method: HAND - Hand Delivered Marie Days: Prior Verbal Notification: Recipient Understood Notice: Yes Recipient Signature: Yes Med Rec Note Co-signed by Attending: Coverage Notice Comment: [facility] Last DP export: 11/30/19 11:47 a Patient Name: DUKE ARREDONDO Page [phone] at 1548 All edits/amendments must be made on the electronic document DICTATION DATE: 12/02/19 1548 GENERAL MANAGER FOOD: BRYNN 12/02/19 1548 RPT#: [id number] DC DATE:11/30/19 STATUS: DIS IN [facility] [address] [place] [address] END OF REPORT
== END 2019-11-30 16:17 | disposition home health service (06) | DRG 871 ==
LOC: EDBD 13:40 → D.ER 13:40 → D.MS 14:20 → D.ICU 14:20 → D.M3 11-19 19:07 → D.MS 11-22 19:01
PROVIDERS: Family Medicine; ADMIT Internal Medicine Nephrology; ATTEND Internal Medicine Nephrology
PROC: 5A1945Z Respiratory Ventilation, 24-96 Consecutive Hours (ICD-10-PCS; principal; 2019-11-13)
PROC: 0B9F8ZX Drainage of Right Lower Lung Lobe, Via Natural or Artificial Opening Endoscopic, Diagnostic (ICD-10-PCS; 2019-11-17)
DX: A41.9 Sepsis, unspecified organism (principal); R65.21 Severe sepsis with septic shock; J18.9 Pneumonia, unspecified organism; G93.6 Cerebral edema; G93.41 Metabolic encephalopathy; J96.22 Acute and chronic respiratory failure with hypercapnia; J96.21 Acute and chronic respiratory failure with hypoxia; E43 Unspecified severe protein-calorie malnutrition; J44.1 Chronic obstructive pulmonary disease with (acute) exacerbation; N17.9 Acute kidney failure, unspecified; E87.1 Hypo-osmolality and hyponatremia; E87.5 Hyperkalemia; B85.0 Pediculosis due to Pediculus humanus capitis; R00.1 Bradycardia, unspecified; R31.0 Gross hematuria